=== PATIENT | male | born 1960 | race Caucasian/White ===

== ENCOUNTER 2016-05-06 11:46 | Emergency (ER) | payer MEDICAID, OTHER ==
[2016-05-06 12:49] VITALS: BP 134/94
[2016-05-06] MEDS ORDERED: Aspirin Low Dose CHEW TAB* 81 MG PO ONE (14:26)
--- NOTE | 2016-05-06 14:44 | UC ---
cassidy March Timothy, scribed for Marielle Kenney DO on 05/06/16 at 1319 . General HPI - HPI Summary HPI Summary: Jacob Rodarte is a 56 yo male presenting to [facility] with 2/10 constant left, squeezing flank pain that wraps around to his front, causing some numbness for the past 3-4 weeks, gradually getting worse. He states there are no aggravating or alleviating factors. However, pt notes that his sob is worse whenever sqeezing intensifies. Pt has a Hx of COPD and is on 3 L O2, and he feels his SOB getting worse. Pt noticed blood in his urine five weeks ago, and states that when transferring from portable to standard O2 it immediately creates urinary urgency. but denies any other Sx. Pt also has a Hx of cardiac stent 3 years ago after having blood clots. He is a light every day tobacco smoker. - History of Current Complaint Chief Complaint: UCGeneralIllness Stated Complaint: COPD SOB SQUEEZING FEELING ON SIDE Time Seen by Provider: 05/06/16 13:13 Hx Obtained From: Patient Onset/Duration: Gradual Onset, Lasting Days, Still Present Timing: Constant Onset Severity: Moderate Current Severity: Moderate Pain Intensity: 2 - /10 Pain Location at: flank Pain Radiates to: front Character: pressure, squeezing Associated Signs & Symptoms: Positive: Abdominal Pain, Back Pain, SOB - mostly at baseline though sob worsens with increase in squeezing. Negative: Confusion , Cough, Chest Pain, Dizziness, Diarrhea, Dysuria, Diaphoresis, Edema, Fever, Headache, Nausea, Palpitations, Syncope, Vomiting, Wheezing, Weakness - Allergy/Home Medications Allergies/Adverse Reactions: Allergies Allergy/AdvReac Type Severity Reaction Status Date / Time Penicillins Allergy See Comment Verified 05/06/16 12:49 Home Medications: Home Medications Aspirin [Aspirin Adult Low Strengt] 81 mg PO 05/06/16 [History] Atorvastatin* [Lipitor*] 40 mg PO 1700 05/06/16 [History Confirmed 05/06/16] Budesonide/Formote 80/4.5(NF) [Symbicort 80/4.5 (NF)] 1 puff INH BID 05/06/16 [ History Confirmed 05/06/16] Metoprolol Succinate [Toprol Xl] 25 mg PO 05/06/16 [History] Nitrostat 05/06/16 [History] Theophylline [Theophylline ER] 05/06/16 [History] predniSONE TAB* [Deltasone TAB*] 5 mg PO DAILY 05/06/16 [History Confirmed 05/06] PMH/Surg Hx/FS Hx/Imm Hx Endocrine History Of: Denies: Diabetes, Thyroid Disease Cardiovascular History Of: Reports: Cardiac Disorders - stent/blood clots Denies: Hypertension Respiratory History Of: Reports: COPD Denies: Asthma GI/ History Of: Denies: Ulcer Other History Of: Anticoagulant Therapy - Surgical History Surgical History: Yes Surgery Procedure, Year, and Place: Oral Surgery - Family History Known Family History: Positive: Other - mom- lung cancer; father -CVA Negative: Cardiac Disease, Hypertension, Diabetes - Social History Occupation: Disabled Alcohol Use: Rare Substance Use Type: None Smoking Status (MU): Light Every Day Tobacco Smoker Type: Cigarettes Amount Used/How Often: 3-10 cigs per day Length of Time of Smoking/Using Tobacco: "all my life" Household Exposure Type: Cigarettes Cessation Counseling: Patient Advised to Stop - Immunization History Most Recent Influenza Vaccination: never Most Recent Tetanus Shot: unknown Most Recent Pneumonia Vaccination: never Review of Systems Constitutional: Negative Skin: Negative Eyes: Negative ENT: Negative Respiratory: Shortness Of Breath - worse than baseline with increased squeezing Cardiovascular: Negative Gastrointestinal: Abdominal Pain - from flank pain Genitourinary: Hematuria, Urgency - with initial O2 administration, Other - left flank pain Motor: Negative Neurovascular: Negative Musculoskeletal: Negative Neurological: Negative Psychological: Negative All Other Systems Reviewed And Are Negative: Yes Physical Exam Triage Information Reviewed: Yes Appearance: Well-Appearing, No Pain Distress, Well-Nourished Vital Signs: Initial Vital Signs Temp 99.1 F 05/06/16 12:41 Pulse 103 05/06/16 12:41 Resp 24 05/06/16 12:41 BP 134/94 05/06/16 12:41 Pulse Ox 92 05/06/16 12:41 Vital Signs Reviewed: Yes Eyes: Positive: Conjunctiva Clear. Negative: Conjunctiva Inflamed, Discharge ENT: Positive: Hearing grossly normal. Negative: Muffled/hoarse voice Neck: Positive: Supple, Nontender Respiratory: Positive: Chest non-tender, Lungs clear, Normal breath sounds, No respiratory distress, No accessory muscle use Cardiovascular: Positive: RRR, No Murmur Abdomen Description: Positive: Soft. Negative: Nontender - mild LLQ tenderness to palpation, CVA Tenderness (R), CVA Tenderness (L), Distended, Guarding, McBurney's Point Tenderness Bowel Sounds: Positive: Present Musculoskeletal Exam: Normal Neurological: Positive: Alert, Muscle Tone Normal Psychological Exam: Normal Psychological: Positive: Age Appropriate Behavior Skin Exam: Normal Diagnostics - EKG Cardiac Rate: NL - NSR @ [address] changes Re-Evaluation - Re-Evaluation First Eval Re-Evaluation Time: 14:13 Change: Worse Comment: Pt pricked his finger on the needle of the urine collection cup. Needle was sterile. An incident report is being filed. Site of prick has been examined and cleaned. Course/Dx - Course Course Of Treatment: Jacob Rodarte is a 56 yo male presenting to [facility] with COPD and squeezing left flank pain wrapping to the front of his body. After review of his UA and EKG, he was recommended to present to [facility], but will leave AMA instead. UA Results: Color: pale. Character: clear. Odor: none. Bilirubin: negative. Urobilinogen: normal. Ketoens: negative. Ascorbic acid: negative. Glucose: negative. Protein: negative. Blood: negative. pH: 8. Nitrite: negative. Leukocytes: normal. Specific [place]: 1.010. while giving urine specimen, pt puched his thumb through the lid og urine cup and suffered a puncture wound on the sterile needle inside the cup. on examination of the thumb, a small puncture wound is noted at the tip of his rt thumb. wound was cleaned and dressed by nursing. - Differential Dx - Multi-Symptom Provider Diagnoses: ama, atypical cp, flank pain, dyspnea, puncture wound Discharge - Discharge Plan Condition: Stable Disposition: AGAINST MEDICAL ADVICE Referrals: Josh Fairchild MD [Primary Care Provider] - 2 Days Additional Instructions: Follow up with your primary care physician regarding your visit to urgent care. Return to urgent care or the emergency department with any new or recurring symptoms. The documentation as recorded by the cassidy mullen Timothy accurately reflects the service I personally performed and the decisions made by , Marielle Kenney DO.
== END 2016-05-06 14:50 | disposition left against medical advice (07) ==
LOC: UCEAST 11:46
DX: R07.89 Other chest pain (principal); M54.9 Dorsalgia, unspecified; R06.00 Dyspnea, unspecified; S61.031A Puncture wound without foreign body of right thumb without damage to nail, initial encounter; W46.0XXA Contact with hypodermic needle, initial encounter; Y93.9 Activity, unspecified; Y92.9 Unspecified place or not applicable; Z79.01 Long term (current) use of anticoagulants; Z79.82 Long term (current) use of aspirin; Z88.0 Allergy status to penicillin; F17.210 Nicotine dependence, cigarettes, uncomplicated
CPT/HCPCS: 81002; 87086; 93005; 99212; A9270-GY; G0463

== ENCOUNTER 2016-05-07 12:48 | Observation (INO) | payer MEDICAID, OTHER ==
[2016-05-07] MEDS ORDERED: methylPREDNISolone 125 MG* 2 ML VIAL IV ONE (13:22)
[2016-05-07] MEDS ORDERED: Albuterol/Ipratropium NEB.SOL* Albuterol 2.5 MG/Ipratropium 0.5 MG 3 ML INH ONE ×3 (13:22→15:23)
[2016-05-07 13:28] LABS: Hematocrit 47 % (42-52); Hemoglobin 15.8 g/dl (14.0-18.0); Mean Corpuscular HGB Conc 34 g/dl (31-36); Mean Corpuscular Hemoglobin 30 pg (27-31); Mean Corpuscular Volume 89 fL (80-94); Mean Platelet Volume 9 um3 (7.4-10.4); Red Blood Count 5.27 10^6/ul (4.0-5.4); Red Cell Distribution Width 14 % (10.5-15); White Blood Count 11.6 10^3/ul (3.5-10.8)
[2016-05-07 13:44] LABS: Albumin 4.1 g/dL (3.2-5.2); BUN/Creatinine Ratio 14.6 (8-20); Calcium 9.5 mg/dL (8.6-10.3); EGFR African American 124.5 (>60); EGFR Non-African American 96.8 (>60); Globulin 2.7 g/dL (2-4); Potassium 3.9 mmol/L (3.5-5.0); Total Bilirubin 0.4 mg/dL (0.2-1.0); Total Protein 6.8 g/dL (6.4-8.9)
[2016-05-07 13:47] LABS: Troponin I 0.01 ng/mL (<0.04)
--- NOTE | 2016-05-07 13:48 | ED ---
cassidy March Timothy, scribed for Danyelle Rodarte MD on 05/07/16 at 1324 . Respiratory - HPI Summary HPI Summary: Jacob Rodarte is a 56 yo male presenting to [facility] with left side back pain and SOB. He was seen in urgent care yesterday and left AMA after a UA and EKG were performed. He had increased shortness of breath over the past few hours, with lower back pain wrapping to the front and increased urinary urgency with initial O2 administration at home. He recently saw Dr. fatima for COPD. He denies all other Sx including cough. He nebulizes 1x per day, but has not used it today. He has a Hx of COPD, cardiac stent 3 years ago, and is a 3 cigarette/ day smoker currently. He does not use any other drugs. He is allergic to penicllin. - History of Current Complaint Chief Complaint: EDRespiratoryDistress Stated Complaint: DIFF BREATHING Time Seen by Provider: 05/07/16 13:13 Hx Obtained From: Patient Onset/Duration: Gradual Onset, Lasting Days, Still Present Timing: Constant Initial Severity: Moderate Current Severity: Moderate - Allergy/Home Medications Allergies/Adverse Reactions: Allergies Allergy/AdvReac Type Severity Reaction Status Date / Time Penicillins Allergy See Comment Verified 05/06/16 12:49 PMH/Surg Hx/FS Hx/Imm Hx Endocrine/Hematology History: Reports: Hx Anticoagulant Therapy - ASA Denies: Hx Diabetes, Hx Thyroid Disease Cardiovascular History: Reports: Hx Coronary Artery Disease Denies: Hx Congestive Heart Failure, Hx Hypercholesterolemia, Hx Hypertension Respiratory History: Reports: Hx Chronic Obstructive Pulmonary Disease (COPD) Denies: Hx Asthma GI History: Denies: Hx Ulcer - Surgical History Surgery Procedure, Year, and Place: Oral Surgery Infectious Disease History: No Infectious Disease History: Denies: Hx Hepatitis, Hx Human Immunodeficiency Virus (HIV), Hx of Known/ Suspected MRSA, Traveled Outside the [place] in Last 30 Days - Family History Known Family History: Positive: Other - mom- lung cancer; father -CVA Negative: Cardiac Disease, Hypertension, Diabetes - Social History Alcohol Use: Rare Substance Use Type: Reports: None Smoking Status (MU): Light Every Day Tobacco Smoker Type: Cigarettes Amount Used/How Often: 3-10 cigs per day Length of Time of Smoking/Using Tobacco: "all my life" Review of Systems Constitutional: Negative Negative: Fever, Skin Diaphoresis Eyes: Negative Negative: Photophobia, Blurred Vision, Diplopia, Drainage, Erythema ENT: Negative Negative: Epistaxis, Dental Pain, Sore Throat, Ear Ache, Nasal Discharge Cardiovascular: Negative Negative: Palpitations, Chest Pain Positive: Shortness Of Breath, Cough Gastrointestinal: Negative Negative: Abdominal Pain, Vomiting, Diarrhea, Nausea Genitourinary: Negative Positive: urgency. Negative: burning, dysuria, discharge, frequency, flank pain , hematuria, incontinence, pain Musculoskeletal: Negative Negative: Arthralgia, Myalgia, Decreased ROM, Edema Skin: Negative Negative: Rash, Bruising Neurological: Negative Negative: Headache, Weakness, Paresthesia, Numbness, Slurred Speech Psychological: Normal Negative: Anxious, Depressed All Other Systems Reviewed And Are Negative: Yes Physical Exam Triage Information Reviewed: Yes Vital Signs On Initial Exam: Initial Vitals Temp Pulse Resp BP Pulse Ox 100.2 F 128 22 145/94 93 05/07/16 12:50 05/07/16 12:50 05/07/16 12:50 05/07/16 12:50 05/07/16 12:50 Vital Signs Reviewed: Yes Appearance: Positive: Well-Appearing, No Pain Distress, Well-Nourished Skin: Positive: Warm, Skin Color Reflects Adequate Perfusion, Dry Head/Face: Positive: Normal Head/Face Inspection Eyes: Positive: Normal, EOMI, SAFIA ENT: Positive: TMs normal Neck: Positive: Supple, Nontender Respiratory/Lung Sounds: Positive: Other - decreased BS bases Few scattered wheeze, no rhonci Cardiovascular: Positive: Normal, RRR. Negative: Murmur Abdomen Description: Positive: Nontender, No Organomegaly, Soft Bowel Sounds: Positive: Present Musculoskeletal: Positive: Normal, Strength/ROM Intact Neurological: Positive: Normal, Sensory/Motor Intact, Alert, Oriented to Person Place, Time Psychiatric: Positive: Normal AVPU Assessment: Alert - Assawoman Coma Scale Best Eye Response: 4 - Spontaneous Best Motor Response: 6 - Obeys Commands Best Verbal Response: 5 - Oriented Diagnostics - Vital Signs Vital Signs Temp Pulse Resp BP Pulse Ox 05/07/16 12:50 100.2 F 128 22 145/94 93 - Laboratory Lab Results: Lab Results 05/07/16 05/07/16 05/07/16 Range/Units 13:16 13:16 13:16 WBC 11.6 H (3.5-10.8) 10^3/ul RBC 5.27 (4.0-5.4) 10^6/ul Hgb 15.8 (14.0-18.0) g/dl Hct 47 (42-52) % MCV 89 (80-94) fL MCH 30 (27-31) pg MCHC 34 (31-36) g/dl RDW 14 (10.5-15) % Plt Count 165 (150-450) 10^3/ul MPV 9 (7.4-10.4) um3 Neut % (Auto) 86.6 H (38-83) % Lymph % (Auto) 6.9 L (25-47) % Isabella % (Auto) 5.3 (1-9) % Eos % (Auto) 0.6 (0-6) % Baso % (Auto) 0.6 (0-2) % Absolute Neuts (auto) 10.1 H (1.5-7.7) 10^3/ul Absolute Lymphs (auto) 0.8 L (1.0-4.8) 10^3/ul Absolute Monos (auto) 0.6 (0-0.8) 10^3/ul Absolute Eos (auto) 0.1 (0-0.6) 10^3/ul Absolute Basos (auto) 0.1 (0-0.2) 10^3/ul Absolute Nucleated RBC 0 10^3/ul Nucleated RBC % 0 Sodium 136 (133-145) mmol/L Potassium 3.9 (3.5-5.0) mmol/L Chloride 101 (101-111) mmol/L Carbon Dioxide 32 (22-32) mmol/L Anion Gap 3 (2-11) mmol/L BUN 12 (6-24) mg/dL Creatinine 0.82 (0.67-1.17) mg/dL Est GFR ( Amer) 124.5 (>60) Est GFR (Non-Af Amer) 96.8 (>60) BUN/Creatinine Ratio 14.6 (8-20) Glucose 101 H (70-100) mg/dL Lactic Acid 1.4 (0.5-2.0) mmol/L Calcium 9.5 (8.6-10.3) mg/dL Magnesium 2.0 (1.9-2.7) mg/dL Total Bilirubin 0.40 (0.2-1.0) mg/dL AST 11 L (13-39) U/L ALT 19 (7-52) U/L Alkaline Phosphatase 93 (34-104) U/L Total Creatine Kinase 41 (10-223) U/L CK-MB (CK-2) Pending Troponin I Pending Total Protein 6.8 (6.4-8.9) g/dL Albumin 4.1 (3.2-5.2) g/dL Globulin 2.7 (2-4) g/dL Albumin/Globulin Ratio 1.5 (1-3) Result Diagrams: 05/07/16 13:16 05/07/16 13:16 Lab Statement: Any lab studies that have been ordered have been reviewed, and results considered in the medical decision making process. - EKG 1308 Cardiac Rate: Tachycardia EKG Interpretation: Sinus tachy cardia @ 113 BPM, no acute ST T wave changes. No change 05/06/16 Re-Evaluation - Re-Evaluation First Eval Re-Evaluation Time: 14:15 Change: Improved Comment: Pt states feels markedly improved. Will trial home O2 4lpm. + BS throughout. few scattered wheeze. No accessory muscle use Second Eval Re-Evaluation Time: 15:00 Change: Improved Comment: pt continues to feel well. sats 93 4lnc. reviewed labs, imaging. Pt in agreement for overnight observation. Spoke with Dr. Kelsey - accepting patient Disposition - Course Assessment/Plan: Pt presents to ED with complaint of left low back pain. Pt also with progressive SOB x 1 week. pt with copd. Has been using MDI with mild improvement. Pt without other symptoms - Differential Dx - Cardiopulmonary Differential Diagnoses - Cardiopulmonary: Acute Coronary, Exacerbation Of COPD - Diagnoses Provider Diagnoses: COPD exacerbation - Physician Notifications Discussed Care Of Patient With: Dr. Kelsey [id number] - accepting pt Time Discussed With Above Provider: 14:45 Instructed by Provider To: Admit As Observation Discharge - Discharge Plan Condition: Improved Disposition: ADMITTED TO [facility] Referrals: Josh Fairchild MD [Primary Care Provider] - The documentation as recorded by the cassidy mullen Timothy accurately reflects the service I personally performed and the decisions made by , Danyelle Rodarte MD.
--- NOTE | 2016-05-07 13:52 | RAD ---
Indication: Shortness of breath, wheezing, hypoxia. LEFT side back pain as well as shortness of breath. Oxygen dependent. Comparison: January 09, [address] Technique: Upright AP 1340 hours Report: Elevated lung volumes and both coarsening and rarefaction of the interstitial markings corresponding with advanced emphysema and mild interstitial fibrosis on prior CT. The far peripheral margin of the LEFT costophrenic angle is incompletely included in the [id number]. No focal pulmonary lesions, alveolar consolidation, pleural effusion, or pneumothorax evident. The heart, pulmonary vasculature, and mediastinal contours are unremarkable. IMPRESSION: Stigmata of advanced chronic obstructive pulmonary disease and emphysema. No acute cardiopulmonary process evident.
[2016-05-07] MEDS ORDERED: Albuterol/Ipratropium NEB.SOL* Albuterol 2.5 MG/Ipratropium 0.5 MG 3 ML ONE (15:39)
[2016-05-07] MEDS ORDERED: Acetaminophen TAB* 325 MG PO PRN (16:08)
[2016-05-07] MEDS ORDERED: Morphine INJ* 2 MG/ML 1 ML CARPUJECT IV PRN (16:08)
[2016-05-07] MEDS ORDERED: Albuterol/Ipratropium NEB.SOL* Albuterol 2.5 MG/Ipratropium 0.5 MG 3 ML INH PRN (16:08)
[2016-05-07] MEDS ORDERED: Enoxaparin(*) 40 MG/0.4 ML SYR SUBCUT SCH (17:00)
[2016-05-07] MEDS ORDERED: Azithromycin IV(*) 500 MG in NS 0.9% 250 ML* 250 ML IVPB SCH (17:00)
[2016-05-07] MEDS ORDERED: Atorvastatin* 40 MG TAB PO SCH (17:00)
[2016-05-07] MEDS ORDERED: Mouth Piece, Nicotine* 1 EACH CARTRIDGE INH PRN (18:20)
[2016-05-07] MEDS: Nicotine Inhaler* 10 MG AMP INH PRN (19:07)
[2016-05-07] MEDS: Mometasone/Formoter 100/5 MDI INH SCH (19:46)
--- NOTE | 2016-05-07 23:20 | HP ---
HISTORY AND PHYSICAL: DATE OF ADMISSION: 05/07/15 PRIMARY CARE PROVIDER: Dr. Josh Fairchild. RAILROAD AUDITOR: Dr. Shi. ATTENDING PROVIDER: Laura Kelsey MD * (DICTATED BY ABRIL DUVALL) CHIEF COMPLAINT: Dyspnea. HISTORY OF PRESENT ILLNESS: This is a 56-year-old gentleman with known severe COPD requiring 3 L of supplemental oxygen at baseline as well as known coronary disease, status post PCI who presented to the emergency department with complaints of kind of left flank discomfort and dyspnea. The patient states that he was seen with these complaints at [facility] yesterday who suggested that he proceed to the emergency department for evaluation, but instead came today. He states that his respiratory symptoms has been quite severe for several months and he was actually pleasantly surprised with his oxygen saturation at 85% when he reached to the emergency department. The patient states that he has been coughing occasionally a productive cough, but not necessarily more than usual. He denies any fevers at home and he denies any abdominal pain, nausea or vomiting. He does not feel particularly ill. Again, he states that his respiratory symptoms have been quite severe for months. He is followed chronically by Dr. Shi for COPD care. The patient had pulmonary function testing done on 04/12/16, just 2 weeks ago, which does confirm the severity of his COPD. His FEV1 was 14% of predicted with an FEV1/FVC ratio of 39% with some reversibility with bronchodilators. The patient received 2 DuoNeb and a dose of Solu-Medrol in the emergency department. Oxygenation has improved significantly and he states that he is actually feeling quite well at this time. PAST MEDICAL HISTORY: 1. Severe COPD requiring 3 L of supplemental O2 at baseline. 2. Coronary artery, disease status post PCI. PAST SURGICAL HISTORY: PCI. HOME MEDICATIONS: 1. Aspirin 81 mg p.o. daily. 2. Lipitor 40 mg p.o. daily. 3. Symbicort 2 puffs inhaled twice daily. 4. Metoprolol succinate 25 mg p.o. daily. 5. Theophylline 450 mg p.o. daily. 6. Incruse 62.5 mcg inhaled daily. 7. Prednisone 5 mg p.o. daily. SOCIAL HISTORY: The patient continues to smoke about 3 cigarettes daily. He has a 40 plus pack year smoking history. He lives alone. Has an adult son who lives in the area and he denies any regular alcohol consumption. REVIEW OF SYSTEMS: As noted above in the HPI and is otherwise negative. PHYSICAL EXAMINATION GENERAL: This is a pleasant middle-aged gentleman, in no acute distress with nasal cannula in place. VITAL SIGNS: Temperature 100.2 degrees Fahrenheit, pulse 128 beats per minute, respiratory rate 22, oxygen saturation 93% on 2 L via nasal cannula, and blood pressure 145/94 mmHg. HEENT: Head is normocephalic, atraumatic with mucous membranes pink and moist. RESPIRATORY: The patient has reduced breath sounds in all lung [place]th[place]. No significant wheezing or rhonchi appreciated. CARDIOVASCULAR: Heart has regular rate and rhythm without murmurs, rubs, or gallops. ABDOMEN: Soft and nontender to palpation. EXTREMITIES: No lower extremity edema. SKIN: Limited exam shows no concerning masses or lesions. LABORATORY DATA: CBC shows a white blood cell count of 11,600, hemoglobin 15.8 g/dL, and platelet count of 165,000. Comprehensive metabolic panel is essentially within normal limits. Sodium of 136 mmol/L, potassium 3.9, serum bicarb of 32, BUN 12, creatinine 0.82, estimated GFR of 96. Random glucose of 101 mg/dL. Troponin negative. Lactic acid normal at 1.4. Influenza screening is negative. IMAGING: Chest x-ray shows no acute disease. Chest x-ray shows normal sinus rhythm. ASSESSMENT AND PLAN: This is a 56-year-old gentleman with severe chronic obstructive pulmonary disease who presents with complaints of dyspnea and some chest discomfort. He does not have an acute infiltrate appreciated on chest x- ray. He was significantly hypoxic in the emergency department. He will be admitted for chronic obstructive pulmonary disease exacerbation. 1. Chronic obstructive pulmonary disease exacerbation. The patient is chronically followed by Dr. Shi and is on supplemental oxygen at baseline as well as lot of steroid therapy on a daily basis. He is also receiving maximal inhale therapy. We will admit him with orders for IV steroids, p.r.n. DuoNeb, and azithromycin for its anti-inflammatory effect. 2. Coronary artery disease - no evidence of acute coronary syndrome. Initial troponin negative after greater than 24 hours of symptoms and no EKG changes. We will continue aspirin and statin. 3. Code status. The patient is full code. 4. DVT prophylaxis. The patient is at moderate risk for deep venous thrombosis and will be placed on 40 mg of Lovenox. 5. Healthcare proxy is listed as the patient's son, Jim Rodarte. DISPOSITION: The patient is being admitted to inpatient status for COPD exacerbation. Estimated length of stay is greater than 2 midnights. ABRIL DUVALL CC: Dr. Josh Fairchild; Dr. Shi* [id number]/[facility] #: [id number] [facility]
[2016-05-08 05:32] LABS: Hematocrit 44 % (42-52); Hemoglobin 14.8 g/dl (14.0-18.0); Mean Corpuscular HGB Conc 33 g/dl (31-36); Mean Corpuscular Hemoglobin 30 pg (27-31); Mean Corpuscular Volume 89 fL (80-94); Mean Platelet Volume 10 um3 (7.4-10.4); Red Blood Count 4.98 10^6/ul (4.0-5.4); Red Cell Distribution Width 14 % (10.5-15); White Blood Count 15.1 10^3/ul (3.5-10.8)
[2016-05-08 05:46] LABS: BUN/Creatinine Ratio 17.8 (8-20); Calcium 9.3 mg/dL (8.6-10.3); EGFR African American 111.9 (>60); Potassium 4.1 mmol/L (3.5-5.0)
[2016-05-08] MEDS: Mometasone/Formoter 100/5 MDI INH SCH (07:34)
[2016-05-08] MEDS ORDERED: Theophylline TAB* 300 MG PO SCH (09:00)
[2016-05-08] MEDS ORDERED: methylPREDNISolone 125 MG* 2 ML VIAL IV SCH (09:00)
[2016-05-08] MEDS ORDERED: UMECLIDIN MDI INH SCH (09:00)
[2016-05-08] MEDS ORDERED: Metoprolol Succinate XL TAB* 25 MG PO SCH (09:00)
[2016-05-08] MEDS ORDERED: Aspirin EC Low Dose* 81 MG TAB.EC PO SCH (09:00)
[2016-05-08 11:25] VITALS: BP 137/73
[2016-05-08] MEDS: Nicotine Inhaler* 10 MG AMP INH PRN (12:08)
--- NOTE | 2016-05-09 08:54 | DS ---
DISCHARGE SUMMARY: DATE OF ADMISSION: 05/07/16 DATE OF DISCHARGE: 05/08/16 PRIMARY CARE PROVIDER: Dr. Fairchild LOKIE ENGINEER: Jennifer Shi MD. DISCHARGING PROVIDER: ABRIL Duvall. SUPERVISING PHYSICIAN: Macy Collins MD. * (dictated by ABRIL Duvall) PRIMARY DISCHARGE DIAGNOSIS: COPD exacerbation. SECONDARY DISCHARGE DIAGNOSES: 1. Chronic respiratory failure secondary to COPD. 2. Coronary artery disease, status post PCI, without evidence of acute coronary artery syndrome contributing to this hospital admission. DISCHARGE MEDICATIONS: 1. Ventolin inhaler two puffs inhaled 4 times daily as needed for shortness of breath. 2. DuoNebs, one neb inhaled q. 4 to 6 hours as needed for shortness of breath. 3. Aspirin 81 mg p.o. daily. 4. Lipitor 40 mg p.o. daily. 5. Azithromycin 500 mg p.o. daily x4 days. 6. Symbicort 80/4.5 two puffs inhaled twice daily. 7. Metoprolol succinate 25 mg p.o. daily. 8. Nitroglycerin 0.5 mg sublingual q. 5 minutes as needed for chest pain. 9. Theophylline 450 mg p.o. daily. 10. Incruse 62.5 mcg inhaled daily. 11. Prednisone tapering dose starting at 40 mg. MEDICATION CHANGES: Prednisone taper with instructions to take 40 mg x3 days, followed by 20 mg x3 days, followed by 10 mg x3 days, and then return to his usual dose of 5 mg daily. HOSPITAL IMAGIN. Chest x-ray shows no acute process. 2. EKG shows a sinus rhythm at a rate of 113 beats per minute, but no ischemic changes. HOSPITAL COURSE: This is a 56-year-old gentleman with chronic respiratory failure secondary to COPD, requiring 3 L of supplemental oxygen at baseline, as well as coronary artery disease with history of PCI several years ago who presented with complaints of a kind of left flank discomfort and dyspnea. The patient was seen at [facility] the day prior to admission who had recommended that he be transferred to the emergency department for further evaluation, but the patient declined do so, but when he was not feeling any better he reported to the emergency department. Initial chest x-ray shows no acute infiltrate. The patient had a noted [place] [id number]. Labs were otherwise unremarkable. EKG was unchanged. The patient was noted to be hypoxic on his usual 3 L, at approximately 85%. The patient received Solu-Medrol and two DuoNebs in the emergency department, and he was subsequently admitted for COPD exacerbation. The patient reported significant improvement in just his overnight stay. He received Solu-Medrol, continued on his home inhaled therapies as mentioned above , and given p.r.n. DuoNebs as well as azithromycin. He had very little air exchange appreciated on initial exam, but no significant wheeze and has remained unchanged. He did maintain oxygen saturations in the mid 90s or so on his usual 3 L, and was able to ambulate at 4 L and maintain oxygen saturations in the upper 80s without complaints of significant dyspnea. The patient is followed chronically by Dr. Shi and had pulmonary function testing completed just few weeks ago. This has confirmed the severity of his COPD with an FEV1 14% of predicted, and an FEV1 to FVC ratio of 38.7 with good reversibility with a beta agonist. DISPOSITION: The patient is being discharged to home. Only medication change is a steroid taper with instructions to return to his usual dose of 5 mg daily upon completion. The patient was made a follow-up appointment with his shop assistant, Dr. Shi, for later this week. The patient is instructed to resume all his usual home medications. ABRIL DUVALL CC: Dr[place] Fairchild; [place] [id number]/[facility] #: [id number] [facility]
== END 2016-05-08 12:25 | disposition home or self-care (01) ==
LOC: ED 12:48 → MED 14:51 → INTOOBSV 14:51
PROVIDERS: ADMIT Hospitalist; ATTEND Hospitalist
DX: J44.1 Chronic obstructive pulmonary disease with (acute) exacerbation (principal); J96.10 Chronic respiratory failure, unspecified whether with hypoxia or hypercapnia; I25.10 Atherosclerotic heart disease of native coronary artery without angina pectoris; R00.0 Tachycardia, unspecified; Z79.82 Long term (current) use of aspirin; Z79.899 Other long term (current) drug therapy; Z88.0 Allergy status to penicillin; F17.210 Nicotine dependence, cigarettes, uncomplicated
CPT/HCPCS: 36415; 71010; 80048; 80053; 82550; 82553; 83605; 83735; 83880; 84484; 85025; 87502; 93005; 94640; 94760; 96372; 96374; 96375; 96376; 99283; 99406; A9270-GY; G0378; J0456; J1650; J2930

== ENCOUNTER 2016-09-18 12:48 | Observation (INO) | payer OTHER ==
[2016-09-18 14:58] LABS: Hematocrit 46 % (42-52); Mean Corpuscular HGB Conc 33 g/dl (31-36); Mean Corpuscular Hemoglobin 29 pg (27-31); Mean Corpuscular Volume 88 fL (80-94); Mean Platelet Volume 10 um3 (7.4-10.4); Red Cell Distribution Width 14 % (10.5-15); White Blood Count 11.4 10^3/ul (3.5-10.8)
[2016-09-18 15:08] LABS: Troponin I 0.01 ng/mL (<0.04)
[2016-09-18 15:09] LABS: BUN/Creatinine Ratio 14.3 (8-20); Calcium 9.1 mg/dL (8.6-10.3); EGFR African American 110.4 (>60); EGFR Non-African American 85.9 (>60); Globulin 2.5 g/dL (2-4); Potassium 4.2 mmol/L (3.5-5.0); Total Bilirubin 0.6 mg/dL (0.2-1.0); Total Protein 6.5 g/dL (6.4-8.9)
[2016-09-18] MEDS ORDERED: methylPREDNISolone 125 MG* 2 ML VIAL IV ONE (16:40)
--- NOTE | 2016-09-18 16:44 | RAD ---
INDICATION: Dull constant pain LEFT chest. Difficulty breathing. Chronic obstructive pulmonary disease/asthma. Cardiac disease. COMPARISON: May 07, 2016 chest radiograph and January 09, 2016 CT. TECHNIQUE: Dual energy PA and routine lateral views of the chest were obtained. REPORT: Elevated lung volumes and both diffuse mild prominence of the interstitial markings and patchy rarefaction of the mid to upper lung zone interstitial markings. No focal pulmonary lesion, alveolar consolidation, pleural effusion, pneumothorax. The heart, pulmonary vasculature, and mediastinal contours are unremarkable. No rib fracture evident. No focal osseous lesions evident. IMPRESSION: Stigmata of obstructive lung disease. No acute pulmonary or cardiac process evident.
[2016-09-18] MEDS ORDERED: Albuterol/Ipratropium NEB.SOL* Albuterol 2.5 MG/Ipratropium 0.5 MG 3 ML INH SCH (17:00)
[2016-09-18] MEDS: Albuterol/Ipratropium NEB.SOL* Albuterol 2.5 MG/Ipratropium 0.5 MG 3 ML INH SCH (17:11)
[2016-09-18 17:56] LABS: PCO2 Arterial 57 mmHg (35-45)
--- NOTE | 2016-09-18 18:29 | ED ---
Neel March Aidan, scribed for Patrice Alejandra MD on 09/18/16 at 1821 . Shortness of Breath - HPI Summary HPI Summary: 56 y/o male presents to the ED with a complaint of acute, constant, moderate-to- severe, worsening SOB that has persisted for the past several weeks. Previously , he felt short of breath after walking from room to room, however, his SOB is now severe enough that he feels moderately short of breath from activity as light as getting out of bed. Hx of cardiac stent, blood clot, and COPD for which he is typically prescribed medication. He noticed bilateral lower extremity edemas that have increased in the past 2 days. They reduce in size when he lies down flat. Though he denies leg pain, he mentions cramping in his feet when he sits down. Associated symptoms include left-sided back pain that radiates to the front and nausea. Pt denies vomiting, dysuria, or urinary changes. He does use O2 at home at baseline. - History of Current Complaint Chief Complaint: EDShortnessOfBreath Time Seen by Provider: 09/18/16 15:34 Hx Obtained From: Patient Onset/Duration: Gradual Onset, Lasting Weeks, Still Present Timing: Constant Current Severity: Moderate Dyspnea At: Rest - Hx of chronic SOB at rest but worse on exertion Aggrevating Factors: Movement Alleviating Factors: Oxygen - Pt takes O2 at baseline at home, which alleviates some of his SOB Associated Signs & Symptoms: Edema - bilateral lower extremity, with associated foot soreness when he sits down, left-sided back pain that radiates to the front , nausea - Allergy/Home Medications Allergies/Adverse Reactions: Allergies Allergy/AdvReac Type Severity Reaction Status Date / Time Penicillins Allergy See Comment Verified 05/06/16 12:49 Home Medications: Home Medications Atenolol TAB* [Tenormin TAB* 25 MG] 25 mg PO DAILY 09/18/16 [History Confirmed 09/18/16] Atorvastatin* [Lipitor*] 40 mg PO DAILY 09/18/16 [History Confirmed 09/18/16] Diltiazem HCl Coated Beads [Cartia Xt] 120 mg PO DAILY 09/18/16 [History Confirmed 09/18/16] Theophylline [Theophylline ER] 400 mg PO DAILY 09/18/16 [History Confirmed 09/18] predniSONE TAB* [Deltasone TAB*] 10 mg PO QAM 09/18/16 [History Confirmed ] PMH/Surg Hx/FS Hx/Imm Hx Endocrine/Hematology History: Reports: Hx Anticoagulant Therapy - ASA Denies: Hx Diabetes, Hx Thyroid Disease Cardiovascular History: Reports: Hx Coronary Artery Disease Denies: Hx Congestive Heart Failure, Hx Hypercholesterolemia, Hx Hypertension Respiratory History: Reports: Hx Asthma, Hx Chronic Obstructive Pulmonary Disease (COPD) GI History: Denies: Hx Ulcer - Surgical History Surgery Procedure, Year, and Place: Oral Surgery Infectious Disease History: No Infectious Disease History: Denies: Hx Hepatitis, Hx Human Immunodeficiency Virus (HIV), Hx of Known/ Suspected MRSA, Traveled Outside the [place] in Last 30 Days - Family History Known Family History: Positive: Other - mom- lung cancer; father -CVA Negative: Cardiac Disease, Hypertension, Diabetes - Social History Occupation: Disabled Lives: With Family Alcohol Use: Rare Substance Use Type: Reports: None Smoking Status (MU): Light Every Day Tobacco Smoker Type: Cigarettes Amount Used/How Often: 3-10 cigs per day Length of Time of Smoking/Using Tobacco: "all my life" Review of Systems Constitutional: Negative Eyes: Negative Cardiovascular: Negative Positive: Shortness Of Breath. Negative: Cough Positive: Nausea. Negative: Abdominal Pain, Vomiting, Diarrhea Genitourinary: Negative Positive: Arthralgia - left-sided back pain that radiates to the front, Edema - bilateral lower extremity, with associated foot soreness when he sits down Skin: Negative Neurological: Negative Psychological: Normal All Other Systems Reviewed And Are Negative: Yes Physical Exam - Summary Physical Exam Summary: VITAL SIGNS: Reviewed. GENERAL: Patient is a well-developed and nourished MALE who is lying comfortable in the stretcher. Patient is not in any acute respiratory distress. HEAD AND FACE: No signs of trauma. No ecchymosis, hematomas or skull depressions. No sinus tenderness. EYES: PERRLA, EOMI x 2, No injected conjunctiva, no nystagmus. EARS: Hearing grossly intact. Ear canals and tympanic membranes are within normal limits. MOUTH: Oropharynx within normal limits. NECK: Supple, trachea is midline, no adenopathy, no JVD, no carotid bruit, no c- spine tenderness, neck with full ROM. CHEST: Symmetric, no tenderness at palpation LUNGS: Decreased breath sounds, No crackles. Positive diffuse wheezes bilaterally. CVS: Regular rate and rhythm, S1 and S2 present, no murmurs or gallops appreciated. ABDOMEN: Soft, non-tender. Positive distention. No rebound no guarding, and no masses palpated. Bowel sounds are normal. EXTREMITIES: FROM in all major joints, no cyanosis or clubbing. Positive pitting edema at level of ankles bilaterally, radial pulses 2+ bilaterally NEURO: Alert and oriented x 3. No acute neurological deficits. Speech is normal and follows commands. SKIN: Dry and warm Triage Information Reviewed: Yes Vital Signs On Initial Exam: Initial Vitals Temp Pulse Resp BP Pulse Ox 97.9 F 116 22 132/90 92 09/18/16 13:00 09/18/16 13:00 09/18/16 13:00 09/18/16 13:00 09/18/16 13:00 Vital Signs Reviewed: Yes - Kush Coma Scale Coma Scale Total: 15 Diagnostics - Vital Signs Vital Signs Temp Pulse Resp BP Pulse Ox 09/18/16 18:00 112 17 144/73 96 09/18/16 17:30 103 15 131/84 99 09/18/16 17:17 107 13 99 09/18/16 17:00 97 13 135/95 97 09/18/16 16:31 101 15 129/83 98 09/18/16 16:26 97.5 F 101 22 137/97 98 09/18/16 16:00 97 17 137/97 98 09/18/16 15:30 98 14 130/79 98 09/18/16 15:29 98.2 F 96 23 130/79 98 09/18/16 15:22 104 123/78 89 09/18/16 14:46 98.0 F 99 16 125/86 98 09/18/16 13:54 98.3 F 103 16 131/86 95 09/18/16 13:00 97.9 F 116 22 132/90 92 - Laboratory Lab Results: Lab Results 09/18/16 09/18/16 09/18/16 Range/Units 14:10 14:10 14:10 WBC 11.4 H (3.5-10.8) 10^3/ul RBC 5.20 (4.0-5.4) 10^6/ul Hgb 15.0 (14.0-18.0) g/dl Hct 46 (42-52) % MCV 88 (80-94) fL MCH 29 (27-31) pg MCHC 33 (31-36) g/dl RDW 14 (10.5-15) % Plt Count 178 (150-450) 10^3/ul MPV 10 (7.4-10.4) um3 Neut % (Auto) 78.8 (38-83) % Lymph % (Auto) 11.5 L (25-47) % Gu[place]upe % (Auto) 7.6 (1-9) % Eos % (Auto) 1.3 (0-6) % Baso % (Auto) 0.8 (0-2) % Absolute Neuts (auto) 9.0 H (1.5-7.7) 10^3/ul Absolute Lymphs (auto) 1.3 (1.0-4.8) 10^3/ul Absolute Monos (auto) 0.9 H (0-0.8) 10^3/ul Absolute Eos (auto) 0.1 (0-0.6) 10^3/ul Absolute Basos (auto) 0.1 (0-0.2) 10^3/ul Absolute Nucleated RBC 0.02 10^3/ul Nucleated RBC % 0.2 INR (Anticoag Therapy) 1.03 (0.89-1.11) APTT 28.9 (26.0-36.3) seconds Patient Temperature ABG pH (7.35-7.45) ABG pCO2 (35-45) mmHg ABG pO2 (80-100) mmHg ABG HCO3 (19-31) mmol/L ABG O2 Saturation (95-98) % ABG Base Excess (-2.0-2.0) Respiration Rate O2 Delivery Device Ventilator Type Vent Mode FiO2 Inspiratory Time PEEP Pressure Support Pressure Control EPAP IPAP BiPAP Sodium 146 H (133-145) mmol/L Potassium 4.2 (3.5-5.0) mmol/L Chloride 108 (101-111) mmol/L Carbon Dioxide 29 (22-32) mmol/L Anion Gap 9 (2-11) mmol/L BUN 13 (6-24) mg/dL Creatinine 0.91 (0.67-1.17) mg/dL Est GFR ( Amer) 110.4 (>60) Est GFR (Non-Af Amer) 85.9 (>60) BUN/Creatinine Ratio 14.3 (8-20) Glucose 102 H (70-100) mg/dL Calcium 9.1 (8.6-10.3) mg/dL Total Bilirubin 0.60 (0.2-1.0) mg/dL AST 15 (13-39) U/L ALT 16 (7-52) U/L Alkaline Phosphatase 115 H (34-104) U/L Troponin I 0.01 (<0.04) ng/mL Total Protein 6.5 (6.4-8.9) g/dL Albumin 4.0 (3.2-5.2) g/dL Globulin 2.5 (2-4) g/dL Albumin/Globulin Ratio 1.6 (1-3) / Range/Units 17:53 WBC (3.5-10.8) 10^3/ul RBC (4.0-5.4) 10^6/ul Hgb (14.0-18.0) g/dl Hct (42-52) % MCV (80-94) fL MCH (27-31) pg MCHC (31-36) g/dl RDW (10.5-15) % Plt Count (150-450) 10^3/ul MPV (7.4-10.4) um3 Neut % (Auto) (38-83) % Lymph % (Auto) (25-47) % [place]upe % (Auto) (1-9) % Eos % (Auto) (0-6) % Baso % (Auto) (0-2) % Absolute Neuts (auto) (1.5-7.7) 10^3/ul Absolute Lymphs (auto) (1.0-4.8) 10^3/ul Absolute Monos (auto) (0-0.8) 10^3/ul Absolute Eos (auto) (0-0.6) 10^3/ul Absolute Basos (auto) (0-0.2) 10^3/ul Absolute Nucleated RBC 10^3/ul Nucleated RBC % INR (Anticoag Therapy) (0.89-1.11) APTT (26.0-36.3) seconds Patient Temperature Not Reportable ABG pH 7.33 L (7.35-7.45) ABG pCO2 57 H (35-45) mmHg ABG pO2 109 H (80-100) mmHg ABG HCO3 26.9 (19-31) mmol/L ABG O2 Saturation 99.0 H (95-98) % ABG Base Excess 2.6 H (-2.0-2.0) Respiration Rate Not Reportable O2 Delivery Device nasal cannula Ventilator Type Not Reportable Vent Mode Not Reportable FiO2 Not Reportable Inspiratory Time Not Reportable PEEP Not Reportable Pressure Support Not Reportable Pressure Control Not Reportable EPAP Not Reportable IPAP Not Reportable BiPAP Not Reportable Sodium (133-145) mmol/L Potassium (3.5-5.0) mmol/L Chloride (101-111) mmol/L Carbon Dioxide (22-32) mmol/L Anion Gap (2-11) mmol/L BUN (6-24) mg/dL Creatinine (0.67-1.17) mg/dL Est GFR ( Amer) (>60) Est GFR (Non-Af Amer) (>60) BUN/Creatinine Ratio (8-20) Glucose (70-100) mg/dL Calcium (8.6-10.3) mg/dL Total Bilirubin (0.2-1.0) mg/dL AST (13-39) U/L ALT (7-52) U/L Alkaline Phosphatase (34-104) U/L Troponin I (<0.04) ng/mL Total Protein (6.4-8.9) g/dL Albumin (3.2-5.2) g/dL Globulin (2-4) g/dL Albumin/Globulin Ratio (1-3) Result Diagrams: 09/18/16 14:10 09/18/16 14:10 Lab Statement: Any lab studies that have been ordered have been reviewed, and results considered in the medical decision making process. Course/Dx - Course Assessment/Plan: . 56 y/o male presents to the ED with a complaint of acute, constant, [id number], worsening SOB that has persisted for the past several weeks. Previously, he felt short of breath after walking from room to room, however, his SOB is now severe enough that he feels moderately short of breath from activity as light as getting out of bed. Hx of cardiac stent, blood clot, and COPD for which he is typically prescribed medication. He noticed bilateral lower extremity edemas that have increased in the past 2 days. They reduce in size when he lies down flat. Though he denies leg pain, he mentions cramping in his feet when he sits down. Associated symptoms include left-sided back pain that radiates to the front and nausea. Pt denies vomiting, dysuria, or urinary changes. He does use O2 at home at baseline. Tests indicated WBCs of 11.4, no bands. Sodium of 146. ABG shows pH of 7.33. PCO2 of 57 and PO2 of 109. Chest X-ray indicated no acute pathology. He was given multiple duonebs and IV solumedrol. His symptoms have improved, however, he is still with decreased breath sounds, therefore, I discussed his care with Dr Ray who accepted admission. Patient is hemodynamically stable and A&Ox3. - Diagnoses Differential Diagnosis/HQI/PQRI: Positive: Asthma, Bronchitis, CHF, COPD Exacerbation Provider Diagnoses: COPD exacerbation Discharge - Discharge Plan Condition: Stable Disposition: ADMITTED TO [facility] The documentation as recorded by the Neel mullen Aidan accurately reflects the service I personally performed and the decisions made by me, Patrice Alejandra MD.
[2016-09-18] MEDS ORDERED: Albuterol/Ipratropium NEB.SOL* Albuterol 2.5 MG/Ipratropium 0.5 MG 3 ML INH PRN (19:14)
[2016-09-18] MEDS ORDERED: Acetaminophen TAB* 325 MG PO PRN (19:14)
[2016-09-18] MEDS ORDERED: Furosemide TAB* 20 MG PO ONE (19:24)
[2016-09-18] MEDS ORDERED: Furosemide TAB* 40 MG ONE (19:53)
[2016-09-18] MEDS ORDERED: Azithromycin IV(*) 500 MG in NS 0.9% 250 ML* 250 ML IVPB SCH (20:00)
[2016-09-18] MEDS ORDERED: Enoxaparin(*) 40 MG/0.4 ML SYR SUBCUT SCH (20:00)
[2016-09-18] MEDS: Mometasone/Formoter 100/5 MDI INH SCH (20:42)
--- NOTE | 2016-09-18 22:14 | HP ---
CC: Dr. Corona; Dr. Shi * ADMISSION HISTORY AND PHYSICAL: DATE OF ADMISSION: 09/18/16 PRIMARY CARE PROVIDER: Not listed. C++ PROFESSOR: Jennifer Shi MD PRIMARY SEO MANAGER: Paula Corona MD ADMITTING PROVIDER: ABRIL Duvall SUPERVISING PHYSICIAN: Josh Ray MD * (DICTATED BY ABRIL DUVALL) CHIEF COMPLAINT: Shortness of breath. HISTORY OF PRESENT ILLNESS: This is a 56-year-old gentleman with severe COPD who requires 3 L of supplemental O2 at baseline who presents to the emergency department with complaints of increasing shortness of breath over the last week or so. He states that he has had a mild cough that has been mostly nonproductive in association with increased dyspnea. He has also noted some lower extremity edema, mostly puffiness in his feet to the point that he wore slippers into the emergency department for increased comfort. He originally thought that perhaps the edema that he has been experiencing is something to do with his diltiazem prescription. He was recently seen by his cigar packing examiner, Dr. Corona, who decreased his diltiazem from 180 mg to 120 mg daily and has noted no significant difference. He reports that he is mildly nauseated in the mornings, but no associated vomiting. No constipation or diarrhea. No complaints of abdominal pain. No fevers or night sweats. No rashes. No other recent acute illness. The patient was last seen in April with a similar presentation and treated for a COPD exacerbation. He states that he has been compliant with his medications at home. As noted above, his diltiazem dose is changed. Only other significant medication change in last several months has been his prednisone decreasing from 10 mg to 5 mg, but this was completed a couple of months ago and does not seem to be acutely contributing to his symptoms. He has also successfully quit smoking since his last hospitalization. PAST MEDICAL HISTORY: 1. Chronic respiratory failure secondary to COPD requiring 3 L of supplemental oxygen via nasal cannula. 2. Coronary artery disease, status post PCI. PAST SURGICAL HISTORY: PCI. HOME MEDICATIONS: 1. Albuterol inhaler 1 to 2 puffs inhaled 4 times daily as needed for shortness of breath. 2. Aspirin 81 mg p.o. daily. 3. Atenolol 25 mg p.o. daily. 4. Lipitor 40 mg p.o. daily. 5. Symbicort 2 puffs inhaled twice daily. 6. Diltiazem 120 mg p.o. daily. 7. Nitroglycerin 0.4 mg sublingual q.5 minutes as needed for chest pain. 8. Theophylline 400 mg p.o. daily. 9. Incruse 1 puff inhaled daily. 10. Prednisone 5 mg p.o. daily. SOCIAL HISTORY: The patient has a 40-pack year smoking history, recently quit smoking completely. Denies any regular alcohol consumption. The patient lives alone. REVIEW OF SYSTEMS: As listed above in HPI. All other systems reviewed and considered negative. PHYSICAL EXAMINATION GENERAL: This is a very pleasant 56-year-old gentleman, who appears mildly dyspneic, but can complete full sentences and is in no acute distress. VITAL SIGNS: Initial vitals show temperature 97.9 degrees Fahrenheit, pulse 116 beats per minute, respiratory rate 22, oxygen saturation 92% on 3 L, and blood pressure 132/90 mmHg. HEENT: Head is normocephalic, atraumatic. Mucous membranes are pink and moist. RESPIRATORY: There are reduced breath sounds appreciated in most lung hawthorne and occasional faint wheeze. No significant rhonchi or crackles noted. CARDIOVASCULAR: Heart has a regular rate and rhythm without murmurs, rubs, or gallops. ABDOMEN: Soft and nontender to palpation. EXTREMITIES: There is trace to 1+ edema at his feet and ankles bilaterally. SKIN: The patient has what appears to be a fungal rash surrounding plantar surface of his feet. Otherwise, unremarkable. PSYCH: The patient is alert and appropriately oriented. DIAGNOSTIC STUDIES/LAB DATA: Laboratory evaluation: CBC shows a white blood cell count of 11,400; hemoglobin of 15 g/dL; and a platelet count of 178,000. ABG demonstrates a pH of 7.33 with a pCO2 of 57, pO2 of 109, and serum bicarb of 26.9. Comprehensive metabolic panel shows sodium of 146, potassium of 4.2, serum bicarb of 29, BUN of 13, creatinine 0.91, and estimated GFR of 85. Total bilirubin and transaminases within normal limits. Troponin negative. Imaging: Chest x-ray shows changes consistent with COPD, but nothing acute. Review of echocardiogram completed in July of this year shows right ventricular hypertrophy with an intact left ventricular ejection fraction and no right ventricular failure appreciated at that time. ASSESSMENT AND PLAN: This is a 56-year-old gentleman with severe chronic obstructive pulmonary disease as well as coronary artery disease presenting with complaints of shortness of breath and lower extremity edema. 1. Chronic obstructive pulmonary disease exacerbation - we will treat the patient for chronic obstructive pulmonary disease exacerbation with steroids, p.r.n. DuoNebs, azithromycin, and continue as typical home inhaled medications including Incruse and Symbicort. He has a mild respiratory acidosis appreciated on ABG. He is oxygenating well on his baseline oxygen requirements at this time. The patient does not require additional intervention. 2. Presumed diastolic heart failure exacerbation - based on last echocardiogram , there is a mild right ventricular hypertrophy likely resulting in some diastolic dysfunction, which maybe responsible for some of the lower extremity edema. Unsure of how much of this is contributing to his dyspnea, but we will likely diurese with oral Lasix. 3. Chronic respiratory failure secondary to chronic obstructive pulmonary disease, requiring 3 L of supplemental oxygen at baseline. 4. Coronary artery disease without evidence of acute coronary syndrome: We will plan to continue his daily aspirin, statin, and beta-stephania therapy. 5. Code statusa: The patient is full code. 6. DVT prophylaxis: The patient will be started on daily Lovenox therapy. 7. Health care proxy: The patient's son. DISPOSITION: The patient is being admitted under observation status with anticipated length of stay to be 1 midnight with likely discharge tomorrow. ABRIL DUVALL [id number]/[facility] #: [id number] JOSH
[2016-09-19 05:53] LABS: Hematocrit 43 % (42-52); Hemoglobin 14.1 g/dl (14.0-18.0); Mean Corpuscular HGB Conc 33 g/dl (31-36); Mean Corpuscular Hemoglobin 29 pg (27-31); Mean Corpuscular Volume 88 fL (80-94); Mean Platelet Volume 9 um3 (7.4-10.4); Red Blood Count 4.81 10^6/ul (4.0-5.4); Red Cell Distribution Width 13 % (10.5-15); White Blood Count 10.2 10^3/ul (3.5-10.8)
[2016-09-19 06:02] LABS: Anion Gap 3 mmol/L (2-11); BUN/Creatinine Ratio 18.1 (8-20); Blood Urea Nitrogen 17 mg/dL (6-24); CO2 Carbon Dioxide 30 mmol/L (22-32); Chloride 100 mmol/L (101-111); EGFR African American 106.4 (>60); EGFR Non-African American 82.7 (>60); Glucose 145 mg/dL (70-100); Potassium 4.7 mmol/L (3.5-5.0); Sodium 133 mmol/L (133-145)
[2016-09-19 08:27] LABS: Theophylline < 2.7 mcg/mL (10-20.0)
[2016-09-19] MEDS: Mometasone/Formoter 100/5 MDI INH SCH (08:56)
[2016-09-19] MEDS ORDERED: THEOPHYLLINE 400 MG PO SCH (09:00)
[2016-09-19] MEDS ORDERED: Diltiazem CD CAP* 120 MG PO SCH (09:00)
[2016-09-19] MEDS ORDERED: Aspirin EC Low Dose* 81 MG TAB.EC PO SCH (09:00)
[2016-09-19] MEDS ORDERED: Atorvastatin* 40 MG TAB PO SCH (09:00)
[2016-09-19] MEDS ORDERED: UMECLIDIN MDI INH SCH (09:00)
[2016-09-19] MEDS ORDERED: Atenolol TAB* 25 MG PO SCH (09:00)
[2016-09-19] MEDS ORDERED: predniSONE TAB* 20 MG PO SCH (09:00)
[2016-09-19] MEDS ORDERED: Furosemide TAB* 20 MG PO SCH (09:00)
[2016-09-19 16:23] VITALS: BP 127/87
--- NOTE | 2016-09-19 19:17 | ECHO ---
Patient: SCOTTY ENRIQUEZ [facility] Rec#: [id number] : 1960 Date: 09/19/2016 Age: 56y Height: 177.8 cm / 70.0 in Weight: 85.28 kg / 188.0 lbs Sex: M BSA: 2.03 Room#: [facility] Admit Date#: 09/18/2016 Type: Inpatient Referring: Mahi Barboza MD Reading: Paula Corona MD Family Practice Physician: Sindy Eddy RDCS CC: ERVIN DUMONT Transthoracic Echocardiogram Indication: Dyspnea BP: 130/82 HR: 67 Rhythm: NSR with PACs Indications Shortness of Breath Findings History: Severe COPD, CAD, PCI, smoker. This is a LIMITED study to evaluate RV function, and assess for constriction. Technical Comments: The study quality is fair. The study is technically limited due to poor acoustic windows. The study is technically limited due to the patient's history of COPD. Completed at 1610. Left Ventricle: The left ventricular chamber size is normal. Global left ventricular wall motion and contractility are within normal limits. Left ventricular systolic function is at the lower limits of normal. The estimated ejection fraction is 50-55%. There is no consistent Doppler evidence of clinically significant diastolic dysfunction. Left Atrium: The left atrial chamber size is normal. Right Ventricle: The right ventricle is mildly dilated. The right ventricular global systolic function is mildly to moderately reduced. Right Atrium: The right atrial cavity size is normal. Mitral Valve: The mitral valve leaflets are mildly thickened. There is no evidence of mitral stenosis. Tricuspid Valve: The tricuspid valve leaflets are normal. There is trace tricuspid regurgitation. There is evidence that pulmonary hypertension may be underestimated. Pericardium: The pericardium is thickened and calcified.No consistant evidence of contrictive physiology: respiratory variation of MV=35%, of LVOT=4% of TV = 24%. Pulmonary Artery: The main pulmonary artery is not well visualized. Venous: The inferior vena cava is dilated. There is a greater than 50% respiratory change in the inferior vena cava dimension. Conclusions Limited study to follow up on right ventricle and pericardium. The study is technically limited due to the patient's history of COPD. Global left ventricular wall motion and contractility are within normal limits. The estimated ejection fraction is 50-55%. The right ventricle is mildly dilated with wall thickness at the upper limits of normal and systolic function is mildly to moderately reduced. The pericardium is thickened and echo bright, but no consistant evidence of contrictive physiology: respiratory variation of MV=35%, of LVOT=4% of TV = 24%. PA pressure measured normal but likely underestimated. Compared with prior echo of 07/08/16, LV function is stable, RV hypokinesis previously estimated as mild. Measurements Name Value Normal Range RVAW (2D) 0.5 cm (0.2 - 0.5) Name Value Normal Range MV E-wave Vmax 0.96 m/sec - MV deceleration time 210.4 msec - MV A-wave Vmax 0.46 m/sec - MV E:A ratio 2.1 ratio - LV septal e' Vmax 0.1 m/sec - LV lateral e' Vmax 0.11 m/sec - LV E:e' septal ratio 9.6 ratio - LV E:e' lateral ratio 8.72 ratio - Name Value Normal Range AV Vmax 1.07 m/sec - AV VTI 19.02 cm - AV peak gradient 4.6 mmHg - AV mean gradient 2.68 mmHg - LVOT Vmax 1.06 m/sec - LVOT VTI 23.11 cm - LVOT peak gradient 4.5 mmHg - LVOT mean gradient 2.15 mmHg - Name Value Normal Range MV Vmax 0.94 m/sec - MV VTI 28.05 cm - MV peak gradient 3.58 mmHg - MV mean gradient 1.1 mmHg - MV PHT 59.5 msec - MVA (PHT) 3.69 cm2 - Name Value Normal Range TR Vmax 1.5 m/sec - TR peak gradient 9 mmHg - RAP 8 mmHg - RVSP 17 mmHg - IVC diameter 2.3 cm -
--- NOTE | 2016-09-20 02:11 | DS ---
CC: Dr. Corona; Dr. Shi; Dr. Fairchild * DISCHARGE SUMMARY: DATE OF ADMISSION: 09/18/16 DATE OF DISCHARGE: 09/19/16 DISCHARGE DIAGNOSES: 1. Shortness of breath with chronic obstructive pulmonary disease exacerbation. 2. Leg edema due to mild right-sided heart failure with an unknown ejection fraction, echocardiogram pending. SECONDARY DIAGNOSES: 1. Chronic respiratory failure secondary to chronic obstructive pulmonary disease, requiring oxygen at 2 to 3 L. 2. History of coronary artery disease, status post stenting in the past. MEDICATIONS ON DISCHARGE: Include: 1. Albuterol inhaler on a p.r.n. basis. 2. Aspirin 81 mg daily. 3. Atenolol 25 mg daily. 4. Lipitor 40 mg daily. 5. Azithromycin 250 mg daily for 4 days total. 6. Symbicort 80/4.5 two puffs twice a day. 7. Diltiazem XT 120 mg daily. 8. Lasix 20 mg daily. 9. Nitroglycerin on a p.r.n. basis. 10. Theophylline ER 400 mg daily. 11. Incruse Ellipta one puff inhalation daily. 12. Prednisone 50 mg tablet for a total of 5 days, discontinue after 5 days and then restart prednisone at 5 mg daily continuously. At discharge, the patient is recommended to follow up with Dr. Corona in approximately 1 to 2 weeks. The patient is recommended to follow up with Dr. Shi within a week. The patient recommended to have a basic metabolic panel drawn due to being newly on Lasix and for the reports to be sent to Dr. Shi, Dr. Fairchild and Dr. Corona. HOSPITALIZATION COURSE: Jacob Rodarte is a 56-year-old male who just recently stopped smoking approximately 2 to 3 weeks ago and has severe oxygen- dependent COPD and pulmonary hypertension. He presents with COPD exacerbation. He also has bilateral leg edema, most likely due to mild right-sided heart failure for which he was started on a diuretic at this time. The patient responded very well to IV steroids and azithromycin as he is going to be discharged home 24 hours after admission. He continues to be at 3 L of oxygen via nasal cannula. The patient has history of possibility of abnormality of endopericardium and possible constriction. Repeat echocardiogram is pending at the time of dictation. The patient had it done, but the report is still delayed. The patient is to follow up with her primary care physician as well as Dr. Shi and Dr. Corona in regards to that. PHYSICAL EXAMINATION AT DISCHARGE: Blood pressure of 127/87, heart rate of 83 and regular, respiratory rate 20, oxygen saturation 92% on 3 L of oxygen via nasal cannula, temperature 97.6. General: This is a very pleasant 56-year-old male who is in no acute distress. Alert, awake and oriented x3. HEENT: Head atraumatic and normocephalic. Eyes: Pupils equal and reactive to light and accommodation. Oropharynx clear. Mucosa moist. Neck: Supple. No JVD, no bruit bilaterally. Cardiovascular: Regular rate and rhythm. No murmur. Respiratory: Distant breath sounds bilaterally with mild bibasilar wheezes. Abdomen: Soft, nontender. Positive bowel sounds present in all 4 quadrants. Extremities: There is trace bilateral pitting pedal edema. Pulses +2 bilaterally. No clubbing or cyanosis. Neuro evaluation: Speech clear. Cranial nerves II through XII grossly intact. Motor strength is 5/5 bilaterally. Please note this is a short summary of the patient's hospital stay. Please refer to further medical records for details. [id number]/[facility] #: [id number] MTDD
== END 2016-09-19 17:15 | disposition home or self-care (01) ==
LOC: ED 12:48 → MED 19:14
PROVIDERS: ADMIT Internal Medicine; ATTEND Internal Medicine
DX: J44.1 Chronic obstructive pulmonary disease with (acute) exacerbation (principal); I50.9 Heart failure, unspecified; I25.10 Atherosclerotic heart disease of native coronary artery without angina pectoris; Z95.5 Presence of coronary angioplasty implant and graft; Z79.82 Long term (current) use of aspirin; Z79.899 Other long term (current) drug therapy; Z88.0 Allergy status to penicillin; F17.210 Nicotine dependence, cigarettes, uncomplicated; R00.0 Tachycardia, unspecified
CPT/HCPCS: 36415; 36600; 71020; 80048; 80053; 80198; 82803; 83880; 84484; 85025; 85610; 85730; 93005; 93308; 94640; 94760; 96372; 96374; 99285; A9270-GY; G0378; J0456; J1650; J2930; J7512

== ENCOUNTER 2016-11-29 14:13 | Emergency (ER) | payer OTHER ==
[2016-11-29 14:42] VITALS: BP 113/74
--- NOTE | 2016-12-07 13:33 | UC ---
Marguerite March Edward, scribed for Marielle Kenney DO on 11/29/16 at 1545 . Dental HPI - HPI Summary HPI Summary: 56 y/o male presents to [facility] c/o dental pain and swelling in the upper left teeth starting a day and a half ago. The pain is mild rated 1/10 at triage. The pain is aggravated with touch. Denies other symptoms other than chronic SOB. PMHx COPD. SHx stent. FHx CVA, lung CA. Nasal cannula. - History of Current Complaint Chief Complaint: UCDentalProblem Stated Complaint: DENTAL PAIN Time Seen by Provider: 11/29/16 15:40 Hx Obtained From: Patient Onset/Duration: Lasting Days, Still Present Severity: Mild Pain Intensity: 1 Pain Scale Used: 0-10 Numeric - Allergies/Home Medications Allergies/Adverse Reactions: Allergies Allergy/AdvReac Type Severity Reaction Status Date / Time Penicillins Allergy See Comment Verified 11/29/16 14:39 PMH/Surg Hx/FS Hx/Imm Hx Previously Healthy: No Cardiovascular History: Cardiac Disease - CAD, Deep Vein Thrombosis Respiratory History: COPD Other History Of: Anticoagulant Therapy - Aspirin - Surgical History Surgical History: Yes Surgery Procedure, Year, and Place: Stent placement in heart, oral surgery - Family History Known Family History: Positive: Other - mom- lung cancer; father -CVA Negative: Cardiac Disease, Hypertension, Diabetes - Social History Occupation: Disabled Alcohol Use: Rare Substance Use Type: None Smoking Status (MU): Former Smoker Type: Cigarettes Amount Used/How Often: 3-10 cigs per day Length of Time of Smoking/Using Tobacco: "all my life" Household Exposure Type: Cigarettes - Immunization History Most Recent Influenza Vaccination: 2016 Most Recent Tetanus Shot: unknown Most Recent Pneumonia Vaccination: never Review of Systems Constitutional: Negative Skin: Negative Eyes: Negative ENT: Dental Pain - and swelling @ upper left teeth Respiratory: Shortness Of Breath - Chronic Cardiovascular: Negative Gastrointestinal: Negative Genitourinary: Negative Motor: Negative Neurovascular: Negative Musculoskeletal: Negative Neurological: Negative Psychological: Negative All Other Systems Reviewed And Are Negative: Yes Physical Exam Triage Information Reviewed: Yes Appearance: Well-Appearing, No Pain Distress, Well-Nourished Vital Signs: Initial Vital Signs Temp 98.4 F 11/29/16 14:34 Pulse 91 11/29/16 14:34 Resp 18 11/29/16 14:34 BP 113/74 11/29/16 14:34 Pulse Ox 3 11/29/16 14:34 Vital Signs Reviewed: Yes Eyes: Positive: Conjunctiva Clear. Negative: Discharge ENT: Positive: Hearing grossly normal. Negative: Muffled/hoarse voice Dental Exam: Other - Mostly edentulous, the remaining upper teeth are severely damaged. Tenderness to percussion of the teeth. 2 cm area of swelling, erythema and tenderness at the L cheek above tooth 10 and 11. Neck exam: Normal Neck: Positive: Supple Respiratory Exam: Other - Comfortable, breathing on O2 Respiratory: Positive: Lungs clear, Normal breath sounds, No respiratory distress, No accessory muscle use Cardiovascular: Positive: RRR, No Murmur Musculoskeletal Exam: Normal Neurological Exam: Normal Neurological: Positive: Muscle Tone Normal Psychological Exam: Normal Psychological: Positive: Age Appropriate Behavior Skin Exam: Normal, Other - Warm, dry, normal color Dental Complaint Course/Dx - Differential Dx/Diagnosis Provider Diagnoses: toothache Discharge - Discharge Plan Condition: Stable Disposition: HOME Prescriptions: Clindamycin Cap(NF) [Clindamycin Cap 300 mg Cap(NF)] 300 mg PO Q6H #28 cap Patient Education Materials: Clindamycin (By mouth), Toothache (ED) Referrals: Josh Fairchild MD [Primary Care Provider] - If Needed Additional Instructions: Recommend Oil Pulling (coconut oil) and salt water rinsing, 5-20 minutes per day. ANYTIME YOU TAKE AN ANTIBIOTIC, ESPECIALLY CLINDA, IT IS IMPORTANT TO REPLENISH THE BODY'S SUPPLY OF "GOOD BACTERIA." YOU CAN GET GOOD BACTERIA FROM HIGH QUALITY CULTURED FOODS SUCH LOCAL YOGURT, SOUR KRAUT, RANDAL PERRI, NATURALLY FERMENTED PICKLES AND PROBIOTIC DRINKS. YOU CAN ALSO GET GOOD BACTERIA FROM A PROBIOTIC SUPPLEMENT. FOLLOW UP IT IS IMPORTANT THAT YOU FOLLOW UP WITH YOUR DENTIST SCHEDULED. HAVE A GREAT TIME AT YOUR SON'S [place]. CONGRATULATIONS! The documentation as recorded by the Marguerite mullen Edward accurately reflects the service I personally performed and the decisions made by me, Marielle Kenney DO.
== END 2016-11-29 17:10 | disposition home or self-care (01) ==
LOC: UCEAST 14:13
DX: K08.89 Other specified disorders of teeth and supporting structures (principal); Z88.0 Allergy status to penicillin; I25.10 Atherosclerotic heart disease of native coronary artery without angina pectoris; Z86.718 Personal history of other venous thrombosis and embolism; Z79.82 Long term (current) use of aspirin; Z95.5 Presence of coronary angioplasty implant and graft; J44.9 Chronic obstructive pulmonary disease, unspecified; Z87.891 Personal history of nicotine dependence
CPT/HCPCS: 99212; G0463

== ENCOUNTER 2017-12-30 07:28 | Day surgery (SDC) | payer OTHER ==
[~2017-12-30 07:28] MED LIST: Acetaminophen TAB* 325 MG PO PRN; Buffered Lidocaine 0.9% SYRIN* 5 ML/SYR SYRINGE INTRADERM ONE
[2017-12-30] MEDS ORDERED: Lidocaine 1%* 5 ML VIAL ONE (08:30)
[2017-12-30] MEDS ORDERED: Cyclopentolate 1% OPTH.SOL* 2 ML BTL ONE (08:30)
[2017-12-30] MEDS ORDERED: Ketorolac 0.5% OPHTH (NF) 0.5 % 5 ML BTL ONE (08:31)
[2017-12-30] MEDS ORDERED: Neomycin/Polymy/Dex OPHTH.OIN* 3.5 GM ONE (08:31)
[2017-12-30] MEDS ORDERED: Phenylephrine 2.5% OPTH.SOL* 2 ML BTL ONE (08:31)
[2017-12-30] MEDS ORDERED: Tropicamide 1% OPTH.SOL* BTL ONE (08:31)
[2017-12-30] MEDS ORDERED: Tetracaine 0.5% OPTH.SOL 4 ML* 1 DROP BTL ONE (08:31)
[2017-12-30] MEDS ORDERED: Midazolam* 1 MG/ML 2 ML VIAL (2 MG) ONE ×2 (09:09→09:48)
[2017-12-30] MEDS ORDERED: fentaNYL* 50 MCG/ML 2 ML VIAL (100 MCG VIAL) ONE (09:09)
[2017-12-30] MEDS ORDERED: Trypan Blue 0.06% SOL* 0.5 ML BTL ONE (09:14)
[2017-12-30] MEDS ORDERED: Phenylephr/Ketorolac 1%/0.3% OPH DROP BTL ONE (10:08)
[2017-12-30 10:18] VITALS: BP 124/84
--- NOTE | 2017-12-31 04:13 | OP ---
DATE OF OPERATION: 12/30/17 [facility] DATE OF : 58 SURGEON: Ashish Gracia MD. WINE SALES REPRESENTATIVE: None. ANESTHESIA: Topical with intravenous sedation. PRE-OP DIAGNOSIS: White cataract small pupil, left eye. POST-OP DIAGNOSIS: White cataract small pupil, left eye. OPERATIVE PROCEDURE: Phacoemulsification and cataract extraction with posterior chamber intraocular lens implant, left eye. COMPLICATIONS: None. BLOOD LOSS: None. DESCRIPTION OF PROCEDURE: The patient was brought to the operating room and given a small amount of intravenous sedation as well as a drop of tetracaine to the left eye. He was prepped and draped in the usual sterile fashion for ophthalmic surgery and attention was directed to the left eye where a speculum was placed. A paracentesis was created at the 5 o'clock position and 0.1 cc of 1 percent preservative-free lidocaine was injected into the anterior chamber. The pupil was noted to be approximately 4 mm and the surface of the lens appeared fairly white. Room air was injected to the anterior chamber followed by VisionBlue dye. DisCoVisc was then placed into the anterior chamber. A 2.75 mm keratome was used to create a triplanar clear corneal incision at the 3 o' clock position. A continuous curvilinear capsulorrhexis was created with cystotome and Utrata forceps. Omidria was placed into the irrigating solution. BSS on a cannula was used to hydrodissect the lens from the capsule. Phacoemulsification was performed in a [id number] technique to create 4 fragments which were removed. Residual cortical material was removed with irrigation and aspiration. DisCoVisc was used to inflate the capsular bag. An AU00T0 23 diopter lens was inserted into the capsular bag. Irrigation and aspiration were performed to remove viscoelastic from the eye. BSS on a cannula was used to hydrate the corneal stroma and seal the wound. At the end of the case, the pupil was round and measured approximately 4 mm. The lens appeared central and stable. The eye pressure appeared normal and the wound was water tight. Topical Maxitrol ointment was placed on the surface of the eye and the eye speculum was removed. The eye was closed, patched and shielded and the patient was sent to the recovery room in stable condition with post operative instructions and followup appointment given. [id number]/[facility] [place] #: [id number] JOSH
== END 2017-12-30 10:19 | disposition home or self-care (01) ==
LOC: OREAST 07:28
PROVIDERS: ATTEND Ophthalmology
DX: H25.042 Posterior subcapsular polar age-related cataract, left eye (principal); J44.9 Chronic obstructive pulmonary disease, unspecified; Z95.5 Presence of coronary angioplasty implant and graft; Z99.81 Dependence on supplemental oxygen
CPT/HCPCS: A9270-GY; C9447; J2250; J3010; V2632

== ENCOUNTER 2018-01-06 10:02 | Day surgery (SDC) | payer OTHER ==
[~2018-01-06 10:02] MED LIST changes: +Cyclopentolate 1% OPTH.SOL* 2 ML BTL ONE; +Ketorolac 0.5% OPHTH (NF) 0.5 % 5 ML BTL ONE; +Lidocaine 1%* 5 ML VIAL ONE; +Neomycin/Polymy/Dex OPHTH.OIN* 3.5 GM ONE; +Phenylephr/Ketorolac 1%/0.3% OPH DROP BTL ONE; +Phenylephrine 2.5% OPTH.SOL* 2 ML BTL ONE; +Tetracaine 0.5% OPTH.SOL 4 ML* 1 DROP BTL ONE; +Tropicamide 1% OPTH.SOL* BTL ONE; +Trypan Blue 0.06% SOL* 0.5 ML BTL ONE
[2018-01-06] MEDS ORDERED: Neomycin/Polymy/Dex OPHTH.OIN* 3.5 GM ONE (12:16)
[2018-01-06] MEDS ORDERED: Ketorolac 0.5% OPHTH (NF) 0.5 % 5 ML BTL ONE (12:16)
[2018-01-06] MEDS ORDERED: Phenylephrine 2.5% OPTH.SOL* 2 ML BTL ONE (12:16)
[2018-01-06] MEDS ORDERED: Trypan Blue 0.06% SOL* 0.5 ML BTL ONE ×2 (12:16→12:26)
[2018-01-06] MEDS ORDERED: Tetracaine 0.5% OPTH.SOL 4 ML* 1 DROP BTL ONE (12:16)
[2018-01-06] MEDS ORDERED: Cyclopentolate 1% OPTH.SOL* 2 ML BTL ONE (12:16)
[2018-01-06] MEDS ORDERED: Phenylephr/Ketorolac 1%/0.3% OPH DROP BTL ONE (12:16)
[2018-01-06] MEDS ORDERED: Lidocaine 1%* 5 ML VIAL ONE (12:16)
[2018-01-06] MEDS ORDERED: Tropicamide 1% OPTH.SOL* BTL ONE (12:16)
[2018-01-06] MEDS ORDERED: Midazolam* 1 MG/ML 5 ML VIAL (5 MG) ONE (12:50)
[2018-01-06] MEDS ORDERED: fentaNYL* 50 MCG/ML 2 ML VIAL (100 MCG VIAL) ONE (12:57)
[2018-01-06 13:40] VITALS: BP 122/83
--- NOTE | 2018-01-07 09:44 | OP ---
DATE OF OPERATION: 01/06/18 - [facility] DATE OF : 58 SURGEON: Ashish Gracia MD PATTERN MAKER PROGRAMER: None. ANESTHESIA: Topical with intravenous sedation. PRE-OP DIAGNOSIS: Cataract, right eye with small pupil. POST-OP DIAGNOSIS: Cataract, right eye with small pupil. OPERATIVE PROCEDURE: Phacoemulsification and cataract extraction with posterior chamber intraocular lens implant, right eye. COMPLICATIONS: None. BLOOD LOSS: None. DESCRIPTION OF PROCEDURE: The patient was brought to the operating room and received a small amount of intravenous sedation as well as a drop of tetracaine to the right eye. The patient was prepped and draped in the usual sterile fashion for ophthalmic surgery and the speculum was placed in his right eye. It was noted that his pupil dilated to approximately 4 mm only. A paracentesis was created at the 11 o'clock position and 0.1 cc of 1% preservative-free lidocaine was injected into the anterior chamber followed by DisCoVisc. The eye was digitally stabilized while a 2.75 mm keratome was used to create a triplanar clear corneal incision. A Malyugin ring was introduced into the anterior chamber and used to engage the pupillary margin. A continuous curvilinear capsulorrhexis was created with the cystotome and Utrata forceps. BSS was used to hydrodissect the lens from the capsule. Omidria was added to the irrigating solution. Phacoemulsification was performed in a divide-and- conquer technique to create 4 fragments which were removed. Residual cortical material was removed with irrigation and aspiration. DisCoVisc was used to inflate the capsular bag. An AU00T0 24.0 diopter lens was inserted into the capsular bag. DisCoVisc was removed from behind the lens. Supplemental DisCoVisc was placed in the anterior chamber and the Malyugin ring was removed. All DisCoVisc was then removed from the eye using irrigation and aspiration. BSS on a cannula was used to hydrate the corneal stroma and seal the wound. At the end of the case, the pupil was round, the lens was central and stable. The eye pressure appeared normal and the wound was water tight. The speculum was removed from the eye and topical Maxitrol ointment was placed on its surface. The eye was closed, patched and shielded and the patient was sent to the recovery room in stable condition with post operative instructions and followup appointment given. [id number]/[facility] #: [id number] JOSH
== END 2018-01-06 13:47 | disposition home or self-care (01) ==
LOC: OREAST 10:02
PROVIDERS: ATTEND Ophthalmology
DX: H25.11 Age-related nuclear cataract, right eye (principal); H21.561 Pupillary abnormality, right eye; J44.9 Chronic obstructive pulmonary disease, unspecified; Z99.81 Dependence on supplemental oxygen
CPT/HCPCS: A9270-GY; C9447; J2250; J3010; V2632

== ENCOUNTER 2018-04-24 07:47 | Day surgery (SDC) | payer OTHER ==
[~2018-04-24 07:47] MED LIST changes: -Acetaminophen TAB* 325 MG PO PRN; -Buffered Lidocaine 0.9% SYRIN* 5 ML/SYR SYRINGE INTRADERM ONE; +Buffered Lidocaine 1% SYRIN* 1 ML/SYRINGE INTRADERM ONE; -Cyclopentolate 1% OPTH.SOL* 2 ML BTL ONE; -Ketorolac 0.5% OPHTH (NF) 0.5 % 5 ML BTL ONE; +Lactated Ringers 1000 ML Bag* 1,000 ML IV SCH; -Lidocaine 1%* 5 ML VIAL ONE; -Neomycin/Polymy/Dex OPHTH.OIN* 3.5 GM ONE; -Phenylephr/Ketorolac 1%/0.3% OPH DROP BTL ONE; -Phenylephrine 2.5% OPTH.SOL* 2 ML BTL ONE; -Tetracaine 0.5% OPTH.SOL 4 ML* 1 DROP BTL ONE; -Tropicamide 1% OPTH.SOL* BTL ONE; -Trypan Blue 0.06% SOL* 0.5 ML BTL ONE
[2018-04-24] MEDS ORDERED: Buffered Lidocaine 1% SYRIN* 1 ML/SYRINGE INTRADERM ONE (08:16)
[2018-04-24] MEDS ORDERED: Midazolam* 1 MG/ML 2 ML VIAL (2 MG) ONE (09:02)
[2018-04-24] MEDS ORDERED: fentaNYL* 50 MCG/ML 2 ML VIAL (100 MCG VIAL) ONE (09:02)
[2018-04-24] MEDS ORDERED: Propofol* 10 MG/ML 20 ML BTL ONE (09:42)
[2018-04-24] MEDS ORDERED: Phenylephrine INJ* 10 MG/ML 1 ML VIAL (10 MG) ONE (09:49)
[2018-04-24] MEDS ORDERED: Lidocaine 2% PF * 5 ML VIAL ONE (09:51)
[2018-04-24] MEDS ORDERED: Naloxone* 0.4 MG/ML 1 ML VIAL IV PRN (09:54)
[2018-04-24] MEDS ORDERED: Ondansetron ODT TAB* 4 MG PO PRN (09:54)
[2018-04-24] MEDS ORDERED: Acetaminophen TAB* 325 MG PO PRN (09:54)
[2018-04-24] MEDS ORDERED: Levalbuterol 0.63MG/3ML NEB* UNIT OF USE INH PRN (09:54)
[2018-04-24] MEDS ORDERED: DiMENhydriNATE IV* 50 MG/ML VIAL IV PUSH PRN (09:54)
[2018-04-24 10:52] VITALS: BP 129/90
--- NOTE | 2018-04-24 15:22 | PRO ---
CC: Dr. Josh Fairchild * DATE OF PROCEDURE: 04/24/18 - [facility] PRIMARY CARE PHYSICIAN: Dr. Josh Fairchild. INDICATION FOR PROCEDURE: Average risk screening colonoscopy. PROCEDURE PERFORMED: Complete colonoscopy to the terminal ileum with cold snare polypectomy x3. MEDICATIONS GIVEN: Please see anesthesia record. DESCRIPTION OF PROCEDURE: After the colonoscopy procedure, including the risks , benefits, and alternatives, with the risks not limited to perforation, surgery , missed lesions, and/or were explained to the patient, written and informed consent was obtained. IV medication was given by the anesthesia service. A rectal exam was then performed. The rectal exam was unremarkable. The adult Olympus colonoscope was then inserted into the patient's rectum and advanced very carefully through the entirety of the colon and into the cecal base. The cecal base was carefully inspected and normal in appearance. The terminal ileal valve was identified and intubated times 4 to 5 cm and normal in appearance. The preparation was relatively poor requiring frequent washings. Three polyps were identified, two in the transverse colon, they were 0.8 to 1 cm in diameter. They were removed with cold snare polypectomy. An additional 0.8 cm polyp was removed in the sigmoid colon. This was again with cold snare polypectomy. The scope was then returned to the rectum. Direct views were normal. On retroflexion, grade 1 internal hemorrhoids were appreciated. He did have mild arana diverticulosis coli. The scope was then removed from the patient. He tolerated the procedure well. He returned to the recovery room in stable condition. IMPRESSION: 1. Complete colonoscopy to the terminal ileum. 2. Poor prep. 3. Cold snare polypectomy x3 as above. 4. Mild arana diverticulosis coli. 5. Grade 1 internal hemorrhoids. RECOMMENDATIONS: The prep was suboptimal today. I was able to get decent views in some section of the colon, but was obscured in others. Would recommend extended prep and repeat colonoscopy in 6 months to one year. We will follow up on the results of his pathology. [id number]/[facility] #: [id number] JOSH
== END 2018-04-24 11:38 | disposition home or self-care (01) ==
LOC: OR 07:47
PROVIDERS: ATTEND Internal Medicine Gastroenterology
DX: Z12.11 Encounter for screening for malignant neoplasm of colon (principal); K63.5 Polyp of colon; K57.30 Diverticulosis of large intestine without perforation or abscess without bleeding; K64.8 Other hemorrhoids; I25.10 Atherosclerotic heart disease of native coronary artery without angina pectoris; Z95.5 Presence of coronary angioplasty implant and graft; J44.9 Chronic obstructive pulmonary disease, unspecified; G47.33 Obstructive sleep apnea (adult) (pediatric); Z86.711 Personal history of pulmonary embolism; Z79.82 Long term (current) use of aspirin; Z88.0 Allergy status to penicillin; Z87.891 Personal history of nicotine dependence
CPT/HCPCS: 88305; J2250; J2704; J3010

== ENCOUNTER → 2018-12-25 10:07 | Day surgery (SDC) | payer MEDICAID, MEDICARE, OTHER ==
[~2018-12-25 10:07] MED LIST changes: +Albuterol (2.5 MG) 0.5 % CONC 2.5 MG/0.5 ML NEB.SOLN (ICU and ED only) INH ONE; +Albuterol 2.5 MG/3 ML NEB.SOL* (0.083%) INH ONE; +Dexamethasone IV* 4 MG/ML 1 ML (4 MG) ONE; +Famotidine IV* 10 MG/ML 2 ML (20 mg) IV ONE; +Famotidine IV* 10 MG/ML 2 ML (20 mg) ONE; +Midazolam* 1 MG/ML 5 ML VIAL (5 MG) ONE; +Ondansetron INJ* 2 MG/ML VIAL ONE
[2018-12-25 14:48] VITALS: BP 133/86
--- NOTE | 2018-12-26 04:45 | PRO ---
CC: Dr. Josh Fairchild.* DATE OF PROCEDURE: 12/25/18 - [facility] PRIMARY CARE PHYSICIAN: Dr. Josh Fairchild. INDICATION FOR PROCEDURE: Pretransplant colonoscopy screening. PROCEDURE PERFORMED: Complete colonoscopy to the cecum. MEDICATIONS GIVEN: Please see anesthesia record. DESCRIPTION OF PROCEDURE: After the colonoscopy procedure including the risks, benefits, and alternatives with the risks not limited to perforation, surgery, missed lesions, and/or were explained to the patient. Written and informed consent was obtained. IV medication was given and a rectal exam was performed. The rectal exam was unremarkable. The adult Olympus colonoscope was then inserted into the patient's rectum and advanced very carefully through the entirety of the colon and into the cecal base. The cecal base was carefully inspected and normal in appearance. The terminal ileal valve was identified and normal in appearance. Over the next 15 minutes, the scope was carefully withdrawn inspecting the mucosa. The preparation was fair. In the ascending colon a polyp was removed with cold snare polypectomy in entirety. In the transverse colon 2 polyps were removed with biopsy polypectomy in entirety. In the descending colon additional polyp removed with biopsy polypectomy in entirety and finally 2 additional polyps were removed with biopsy polypectomy in entirety. The scope was then returned to the rectum. Direct views were normal. On retroflexion, grade 1 internal hemorrhoids were appreciated. There is mild left-sided diverticulosis coli. The scope was then removed from the patient, he tolerated the procedure well. He returned to the recovery room in stable condition. IMPRESSION: 1. Complete colonoscopy of the cecum with cold snare and biopsy polypectomy x6 polyps as above. 2. Fair prep. 3. Grade 1 internal hemorrhoids. 4. Left-sided diverticulosis coli. RECOMMENDATIONS: Okay to proceed with transplant from a colonoscopy point of view. We will follow up on the results of these polyps but do not anticipate any limiting effects. We would recommend a repeat colonoscopy in 3 years time if he is healthy. We would recommend seeing in the office prior to determine the risks and benefits of future screening at that time. [id number]/[facility] #: [id number] MTDD
== END | disposition home or self-care (01) ==
LOC: OR 10:07
PROVIDERS: ATTEND Internal Medicine Gastroenterology
DX: Z09 Encounter for follow-up examination after completed treatment for conditions other than malignant neoplasm (principal); Z87.19 Personal history of other diseases of the digestive system; Z12.11 Encounter for screening for malignant neoplasm of colon; K63.5 Polyp of colon; K62.1 Rectal polyp; D12.2 Benign neoplasm of ascending colon; J44.9 Chronic obstructive pulmonary disease, unspecified; Z99.81 Dependence on supplemental oxygen; I25.10 Atherosclerotic heart disease of native coronary artery without angina pectoris; Z95.5 Presence of coronary angioplasty implant and graft; Z79.82 Long term (current) use of aspirin; I48.91 Unspecified atrial fibrillation
CPT/HCPCS: 88305; J1100; J2250; J2405

== ENCOUNTER 2023-04-02 17:02 | Inpatient (IN) ==
[2023-04-02] MEDS ORDERED: Naloxone 4 mg VIAL 0.4 MG/ML 10 ml VIAL (4 mg) ONE (17:11)
[2023-04-02] MEDS ORDERED: Succinylcholine 200 mg VIAL 20 mg/ml 10 ml VIAL (200 mg) ONE (17:15)
[2023-04-02] MEDS ORDERED: Dextrose 50% Syringe 50 ml 25 GM/50 ML SYRINGE ONE (17:15)
[2023-04-02] MEDS ORDERED: Etomidate 40 mg/20 ml (2 MG/ML) 20 ml VIAL (40 mg) ONE (17:16)
[2023-04-02] MEDS ORDERED: Propofol 10 MG/ML 20 ML BTL ONE (17:21)
[2023-04-02] MEDS ORDERED: Propofol 10 MG/ML 20 ML BTL IV PUSH ONE (17:24)
[2023-04-02] MEDS ORDERED: Succinylcholine 200 mg VIAL 20 mg/ml 10 ml VIAL (200 mg) IV ONE (17:28)
[2023-04-02] MEDS ORDERED: Etomidate 20 mg/10 ml 2 MG/ML 10 ml VIAL IV ONE (17:29)
[2023-04-02] MEDS ORDERED: Dextrose 50% Syringe 50 ml 25 GM/50 ML SYRINGE IV PUSH ONE (17:30)
[2023-04-02] MEDS ORDERED: Propofol 10 mg/ml 100 ML BTL 1,000 MG/100 ML BTL ONE (17:31)
[2023-04-02] MEDS ORDERED: methylPREDNISolone SOD SUCC 125 mg 2 ML VIAL IV ONE (17:32)
[2023-04-02] MEDS ORDERED: NS 0.9% 1000 ml BAG 1,000 ML IV ONE ×2 (17:33→17:53)
[2023-04-02 17:39] LABS: PO2 Arterial 282 mmHg (80-100)
[2023-04-02 17:42] LABS: PCO2 Arterial > 100 mmHg (35-45)
[2023-04-02] MEDS ORDERED: Cefepime 1 GM in Dextrose 1 GM/50 ML BAG IV ONE (17:50)
[2023-04-02] MEDS ORDERED: Azithromycin 500 mg/250 ml NS 500 MG/250 ML BAG IVPB ONE (17:51)
[2023-04-02] MEDS ORDERED: Naloxone 0.4 mg VIAL 0.4 mg/ml 1 ml VIAL IV PUSH ONE (17:51)
[2023-04-02] MEDS ORDERED: Propofol 10 mg/ml 100 ML BTL 1,000 MG/100 ML BTL IV SCH ×2 (18:00)
[2023-04-02 18:02] LABS: Hematocrit 34.5 % (38-53); Hemoglobin 10.8 g/dL (13.2-16.3); Mean Corpuscular Hemoglobin 28.7 pg (27-33); Mean Corpuscular Hgb Conc 31.5 g/dL (31-36); Mean Corpuscular Volume 91.2 fL (80-97); Mean Platelet Volume 8.4 fL (7.5-11.2); Platelet Count 241 10^3/uL (150-450); Red Blood Count 3.78 10^6/uL (4.06-5.63); Red Cell Distribution Width 13.5 % (12-17); White Blood Count 7.4 10^3/uL (3.6-10.2)
[2023-04-02] MEDS ORDERED: Midazolam 2 mg/2 ml VIAL 1 mg/ml 2 ml VIAL (2 mg) ONE (18:10)
[2023-04-02 18:12] LABS: INR 1.09 (0.83-1.13)
[2023-04-02] MEDS ORDERED: Midazolam 2 mg/2 ml VIAL 1 mg/ml 2 ml VIAL (2 mg) IV SLOW PU ONE (18:17)
[2023-04-02] MEDS: Norepinephrine 4 MG/250mL D5W 4,000 MCG/250 ML BAG IV SCH ×2 (18:18→20:34)
[2023-04-02] MEDS ORDERED: Norepinephrine 4 MG/250mL D5W 4,000 MCG/250 ML BAG IV ONE (18:18)
[2023-04-02 18:27] LABS: High Sens Troponin Baseline 19 pg/mL (<20)
[2023-04-02 18:28] LABS: ABS Lymphocytes 0.2 10^3/uL (1.0-4.8); ABS Monocytes 0.9 10^3/uL (0.0-1.1); ABS Neutrophils 6.3 10^3/uL (1.5-7.6); ABS Nucleated RBC 0.01 10^3/ul; Eosinophil % 0.3 %; Lymphocyte % 2.4 %; Nucleated Red Blood Cells % 0.1 %/100WBC (0.0-0.8)
[2023-04-02 18:32] LABS: Alcohol, S < 13 mg/dL (<13)
[2023-04-02 18:46] LABS: ALT 10 U/L (7-52); AST 12 U/L (13-39); Albumin 3.6 g/dL (3.2-5.2); Albumin/Globulin Ratio 1.2 (1-3); Alkaline Phosphatase 130 U/L (35-149); Blood Urea Nitrogen 42 mg/dL (6-24); CO2 Carbon Dioxide > 45 mmol/L (22-32); Calcium 9.4 mg/dL (8.6-10.3); Chloride 91 mmol/L (101-111); Creatine Kinase 31 U/L (10-223); Creatinine, Serum 0.74 mg/dL (0.67-1.17); Globulin 3.1 g/dL (2-4); Glucose 120 mg/dL (70-100); Magnesium 2.5 mg/dL (1.9-2.7); Sodium 141 mmol/L (135-145); Total Bilirubin 0.3 mg/dL (0.2-1.0); Total Protein 6.7 g/dL (6.4-8.9); eGFR CKD-EPI 101.8 (>60)
[2023-04-02] MEDS ORDERED: D5W 1/2 NS 1000 ml BAG 1,000 ML IV SCH (19:00)
[2023-04-02] MEDS ORDERED: VASOPRESSIN IVPREMIX BTL 40 UNIT/100 ML BTL IV SCH (19:30)
[2023-04-02] MEDS: Midazolam PREMIXBAG 1 MG/ML NS 100 ML IV SCH (19:50)
[2023-04-02] MEDS: Chlorhexidine MOUTHWASH 0.12% 15 ML UDC SWISH SPIT SCH ×2 (19:50→21:31)
[2023-04-02] MEDS ORDERED: Dextrose 50% Syringe 50 ml 25 GM/50 ML SYRINGE IV PUSH PRN (19:57)
[2023-04-02] MEDS: Albuterol/Ipratropium NEB.SOL (2.5/0.5 MG) 3 ML NEB.SOLN INH SCH (20:43)
[2023-04-02] MEDS ORDERED: fentaNYL INFUSION 50 mcg/mL VL 2,500 MCG/50 ML VIAL IV SCH (21:00)
[2023-04-02] MEDS: Enoxaparin 40 MG/0.4 ML SYR SUBCUT SCH (21:30)
[2023-04-02] MEDS: Pantoprazole VIAL 40 MG VIAL IV SCH (21:30)
[2023-04-03] MEDS ORDERED: D5W 1/2 NS 1000 ml BAG 1,000 ML IV SCH (00:20)
[2023-04-03] MEDS: Norepinephrine 4 MG/250mL D5W 4,000 MCG/250 ML BAG IV SCH ×4 (00:36→10:03)
[2023-04-03 00:42] LABS: Resp Rate 20
[2023-04-03 00:44] LABS: PCO2 Arterial 55 mmHg (35-45); PO2 Arterial 124 mmHg (80-100)
[2023-04-03] MEDS: Albuterol/Ipratropium NEB.SOL (2.5/0.5 MG) 3 ML NEB.SOLN INH SCH ×4 (00:45→20:14)
[2023-04-03 01:35] LABS: Urine Appearance Cloudy; Urine Bilirubin Negative (Negative); Urine Blood 2+ (Negative); Urine Color Amber; Urine Glucose 2+(150 mg/dL) (Negative); Urine Ketones Trace (Negative); Urine Nitrite Negative (Negative); Urine Protein 2+(100 mg/dL) (Negative); Urine Specific Gravity 1.018 (1.002-1.030); Urine Urobilinogen Negative (Negative)
[2023-04-03 01:54] LABS: Urine Benzodiazepine Screen Presumptive Positive (None Detect); Urine Cannabinoids Screen None Detected (None Detect); Urine Opiates Screen None Detected (None Detect)
[2023-04-03] MEDS: Chlorhexidine MOUTHWASH 0.12% 15 ML UDC SWISH SPIT SCH ×6 (02:02→21:12)
[2023-04-03 02:04] LABS: High Sensitivity Troponin 1 Hr 21 pg/mL (<20)
[2023-04-03 02:07] LABS: Urine Amorphous Crystals Present /HPF (Absent); Urine Bacteria Absent (Absent); Urine Granular Casts Present (Absent); Urine Red Blood Cell 3+(>10/hpf) (Absent); Urine Squamous Epithelial Cell Present (Absent); Urine White Blood Cell 3+(>20/hpf) (Absent)
[2023-04-03 02:09] LABS: Urine Buprenorphine Screen None Detected (None Detect); Urine Fentanyl Screen None Detected (None Detect); Urine Hydrocodone Screen None Detected (None Detect)
[2023-04-03] MEDS ORDERED: Acetaminophen IV 1 GM/100ML 1,000 MG/100 ML BAG IV PRN (03:09)
[2023-04-03 04:44] LABS: Hematocrit 37.1 % (38-53); Hemoglobin 11.8 g/dL (13.2-16.3); Mean Corpuscular Hemoglobin 28.6 pg (27-33); Mean Corpuscular Hgb Conc 31.7 g/dL (31-36); Mean Corpuscular Volume 90.2 fL (80-97); Mean Platelet Volume 9.2 fL (7.5-11.2); Platelet Count 373 10^3/uL (150-450); Red Blood Count 4.12 10^6/uL (4.06-5.63); Red Cell Distribution Width 13.2 % (12-17); White Blood Count 10.4 10^3/uL (3.6-10.2)
[2023-04-03 05:07] LABS: Anion Gap 7 mmol/L (2-16); Blood Urea Nitrogen 50 mg/dL (6-24); CO2 Carbon Dioxide 33 mmol/L (22-32); Calcium 8.5 mg/dL (8.6-10.3); Chloride 90 mmol/L (101-111); Creatinine, Serum 1.33 mg/dL (0.67-1.17); Glucose 432 mg/dL (70-100); Potassium 4.1 mmol/L (3.5-5.0); Sodium 130 mmol/L (135-145); eGFR CKD-EPI 60.1 (>60)
[2023-04-03 05:09] LABS: Albumin/Globulin Ratio 1.1 (1-3); Calcium 8.6 mg/dL (8.6-10.3); Creatinine, Serum 1.48 mg/dL (0.67-1.17); Globulin 2.7 g/dL (2-4); Potassium 4.1 mmol/L (3.5-5.0); Total Bilirubin 0.5 mg/dL (0.2-1.0); Total Protein 5.7 g/dL (6.4-8.9); eGFR CKD-EPI 52.8 (>60)
[2023-04-03 05:35] LABS: Phosphorus < 1.0 mg/dL (2.5-5.0)
[2023-04-03] MEDS: Sodium Phosphate IV 30 MMOL in NS 0.9% 250 ml 250 ML IV SCH ×2 (06:43→13:16)
[2023-04-03 07:19] LABS: ABS Lymphocytes 0.2 10^3/uL (1.0-4.8); ABS Monocytes 1.3 10^3/uL (0.0-1.1); ABS Neutrophils 8.9 10^3/uL (1.5-7.6); ABS Nucleated RBC 0.05 10^3/ul; Eosinophil % 0.1 %; Nucleated Red Blood Cells % 0.4 %/100WBC (0.0-0.8); RBC Morphology Normal (Normal)
[2023-04-03] MEDS: Pantoprazole VIAL 40 MG VIAL IV SCH (08:34)
[2023-04-03] MEDS ORDERED: Cefepime 1 GM in Dextrose 1 GM/50 ML BAG IV SCH (09:00)
[2023-04-03 09:16] LABS: Glucose Confirmatory 487 mg/dL (70-100)
[2023-04-03] MEDS ORDERED: Dextrose 50% Syringe 50 ml 25 GM/50 ML SYRINGE IV PUSH PRN (09:26)
[2023-04-03] MEDS ORDERED: Potassium & Sodium Phos 250 mg = 1 PACKET G TUBE ONE (09:31)
[2023-04-03] MEDS ORDERED: Insulin Infusion 100unit/100mL 100 UNIT/100 ML BAG IV SCH (10:00)
[2023-04-03] MEDS: Midazolam PREMIXBAG 1 MG/ML NS 100 ML IV SCH (11:26)
[2023-04-03] MEDS ORDERED: Norepinephrine 4 MG/250mL NS 4,000 MCG/250 ML BAG IV SCH (14:00)
[2023-04-03 17:12] LABS: Calcium 7.9 mg/dL (8.6-10.3); Creatinine, Serum 1.82 mg/dL (0.67-1.17); Potassium 3.1 mmol/L (3.5-5.0); eGFR CKD-EPI 41.2 (>60)
[2023-04-03] MEDS ORDERED: Lactated Ringers 1000 ml BAG 1,000 ML IV SCH (18:00)
[2023-04-03] MEDS ORDERED: Potassium Chloride LIQUID 20 MEQ/15 ML LIQUID NG TUBE ONE (19:20)
[2023-04-03 20:00] LABS: Calcium 8.5 mg/dL (8.6-10.3); Creatinine, Serum 2.06 mg/dL (0.67-1.17); Phosphorus 5.4 mg/dL (2.5-5.0); Potassium 3.6 mmol/L (3.5-5.0); eGFR CKD-EPI 35.5 (>60)
[2023-04-03] MEDS: Enoxaparin 40 MG/0.4 ML SYR SUBCUT SCH (21:12)
[2023-04-03] MEDS: Cefepime 1 GM in Dextrose 1 G/50 ML BAG IV SCH (21:12)
[2023-04-03] MEDS: Azithromycin 500 mg/250 ml NS 500 MG/250 ML BAG IVPB SCH (22:46)
[2023-04-04] MEDS: Chlorhexidine MOUTHWASH 0.12% 15 ML UDC SWISH SPIT SCH ×6 (01:39→21:09)
[2023-04-04] MEDS: Albuterol/Ipratropium NEB.SOL (2.5/0.5 MG) 3 ML NEB.SOLN INH SCH ×5 (01:41→23:33)
[2023-04-04 05:21] LABS: ABS Basophils 0.1 10^3/uL (0.0-0.1); ABS Lymphocytes 0.4 10^3/uL (1.0-4.8); ABS Monocytes 1.4 10^3/uL (0.0-1.1); ABS Nucleated RBC 0.02 10^3/ul; Hematocrit 34.3 % (38-53); Hemoglobin 11.2 g/dL (13.2-16.3); Lymphocyte % 1.9 %; Mean Corpuscular Hemoglobin 28.4 pg (27-33); Mean Corpuscular Hgb Conc 32.7 g/dL (31-36); Mean Corpuscular Volume 86.8 fL (80-97); Mean Platelet Volume 8.7 fL (7.5-11.2); Nucleated Red Blood Cells % 0.1 %/100WBC (0.0-0.8); Platelet Count 304 10^3/uL (150-450); Red Blood Count 3.95 10^6/uL (4.06-5.63); Red Cell Distribution Width 13.7 % (12-17); White Blood Count 18.8 10^3/uL (3.6-10.2)
[2023-04-04 06:40] LABS: Calcium 8.1 mg/dL (8.6-10.3); Creatinine, Serum 2.06 mg/dL (0.67-1.17); Phosphorus 4.5 mg/dL (2.5-5.0); Potassium 4.2 mmol/L (3.5-5.0); eGFR CKD-EPI 35.3 (>60)
[2023-04-04 06:45] LABS: Magnesium 1.9 mg/dL (1.9-2.7); Phosphorus 4.4 mg/dL (2.5-5.0)
[2023-04-04] MEDS: Pantoprazole VIAL 40 MG VIAL IV SCH (08:18)
[2023-04-04] MEDS: Cefepime 1 GM in Dextrose 1 G/50 ML BAG IV SCH ×2 (08:19→19:58)
[2023-04-04] MEDS ORDERED: Lactated Ringers 1000 ml BAG 1,000 ML IV SCH (11:00)
[2023-04-04] MEDS: methylPREDNISolone SOD SUCC 40 mg/ml 1 ml VIAL IV SCH ×2 (11:14→17:52)
[2023-04-04] MEDS: Midazolam PREMIXBAG 1 MG/ML NS 100 ML IV SCH (12:09)
[2023-04-04 14:49] LABS: Calcium 8.2 mg/dL (8.6-10.3); Creatinine, Serum 1.77 mg/dL (0.67-1.17); Potassium 4.3 mmol/L (3.5-5.0); eGFR CKD-EPI 42.4 (>60)
[2023-04-04] MEDS: Enoxaparin 40 MG/0.4 ML SYR SUBCUT SCH (20:01)
[2023-04-04] MEDS: Azithromycin 500 mg/250 ml NS 500 MG/250 ML BAG IVPB SCH (20:03)
[2023-04-05] MEDS: Chlorhexidine MOUTHWASH 0.12% 15 ML UDC SWISH SPIT SCH ×6 (01:18→21:51)
[2023-04-05] MEDS: methylPREDNISolone SOD SUCC 40 mg/ml 1 ml VIAL IV SCH ×3 (02:05→19:39)
[2023-04-05 04:30] LABS: Calcium 8.1 mg/dL (8.6-10.3); Creatinine, Serum 1.57 mg/dL (0.67-1.17); Potassium 4.5 mmol/L (3.5-5.0); eGFR CKD-EPI 48.9 (>60)
[2023-04-05 04:50] LABS: ABS Basophils 0.2 10^3/uL (0.0-0.1); ABS Lymphocytes 0.2 10^3/uL (1.0-4.8); ABS Monocytes 0.5 10^3/uL (0.0-1.1); ABS Neutrophils 18.7 10^3/uL (1.5-7.6); ABS Nucleated RBC 0.02 10^3/ul; Hematocrit 31.8 % (38-53); Hemoglobin 10.5 g/dL (13.2-16.3); Lymphocyte % 1.2 %; Mean Corpuscular Hemoglobin 28.4 pg (27-33); Mean Corpuscular Hgb Conc 32.9 g/dL (31-36); Mean Corpuscular Volume 86.3 fL (80-97); Mean Platelet Volume 8.5 fL (7.5-11.2); Nucleated Red Blood Cells % 0.1 %/100WBC (0.0-0.8); Platelet Count 321 10^3/uL (150-450); Red Blood Count 3.69 10^6/uL (4.06-5.63); Red Cell Distribution Width 13.9 % (12-17); White Blood Count 19.6 10^3/uL (3.6-10.2)
[2023-04-05] MEDS: Albuterol/Ipratropium NEB.SOL (2.5/0.5 MG) 3 ML NEB.SOLN INH SCH ×3 (07:40→19:32)
[2023-04-05] MEDS: Cefepime 1 GM in Dextrose 1 G/50 ML BAG IV SCH ×2 (07:47→19:43)
[2023-04-05] MEDS: Pantoprazole VIAL 40 MG VIAL IV SCH (09:29)
[2023-04-05 09:58] LABS: Resp Rate 12
[2023-04-05 10:08] LABS: PCO2 Arterial 60 mmHg (35-45); PO2 Arterial 74 mmHg (80-100)
[2023-04-05 14:52] LABS: T.Pallidum TP-PA Negative (Negative)
[2023-04-05] MEDS ORDERED: Propofol 10 mg/ml 100 ML BTL 1,000 MG/100 ML BTL IV SCH (17:00)
[2023-04-05] MEDS: Enoxaparin 40 MG/0.4 ML SYR SUBCUT SCH (19:38)
[2023-04-06] MEDS: Albuterol/Ipratropium NEB.SOL (2.5/0.5 MG) 3 ML NEB.SOLN INH SCH ×3 (01:36→13:26)
[2023-04-06] MEDS: Chlorhexidine MOUTHWASH 0.12% 15 ML UDC SWISH SPIT SCH ×4 (02:03→15:10)
[2023-04-06] MEDS: methylPREDNISolone SOD SUCC 40 mg/ml 1 ml VIAL IV SCH ×2 (02:08→10:57)
[2023-04-06 03:52] LABS: Calcium 8.5 mg/dL (8.6-10.3); Creatinine, Serum 1.14 mg/dL (0.67-1.17); Phosphorus 1.7 mg/dL (2.5-5.0); Potassium 5.1 mmol/L (3.5-5.0); eGFR CKD-EPI 71.8 (>60)
[2023-04-06 04:39] LABS: Hematocrit 31.1 % (38-53); Hemoglobin 10.1 g/dL (13.2-16.3); Mean Corpuscular Hemoglobin 28.3 pg (27-33); Mean Corpuscular Hgb Conc 32.6 g/dL (31-36); Mean Corpuscular Volume 86.9 fL (80-97); Mean Platelet Volume 8.5 fL (7.5-11.2); Platelet Count 341 10^3/uL (150-450); Red Blood Count 3.58 10^6/uL (4.06-5.63); Red Cell Distribution Width 14.1 % (12-17); White Blood Count 24.8 10^3/uL (3.6-10.2)
[2023-04-06 04:55] LABS: ABS Lymphocytes 0.3 10^3/uL (1.0-4.8); ABS Monocytes 0.8 10^3/uL (0.0-1.1); ABS Neutrophils 23.6 10^3/uL (1.5-7.6); ABS Nucleated RBC 0.07 10^3/ul; Lymphocyte % 1.2 %; Nucleated Red Blood Cells % 0.3 %/100WBC (0.0-0.8)
[2023-04-06 07:08] LABS: Magnesium 2.3 mg/dL (1.9-2.7)
[2023-04-06] MEDS ORDERED: SODIUM ZIRCONIUM CYCLOSILICATE 10 GM PACKET PO ONE (07:32)
[2023-04-06] MEDS: Cefepime 1 GM in Dextrose 1 G/50 ML BAG IV SCH (08:00)
[2023-04-06] MEDS: Pantoprazole VIAL 40 MG VIAL IV SCH (08:00)
[2023-04-06] MEDS ORDERED: Sulfur Hexaflouride MICROSPHR 25 MG VIAL ONE (10:55)
[2023-04-06] MEDS ORDERED: Sodium Phosphate IV 30 MMOL in NS 0.9% 250 ml 250 ML IV ONE (12:00)
[2023-04-06] MEDS ORDERED: Midazolam 2 mg/2 ml VIAL 1 mg/ml 2 ml VIAL (2 mg) IV SLOW PU PRN (13:22)
[2023-04-06] MEDS ORDERED: fentaNYL 100 mcg/2 ml 50 MCG/ML VIAL IV SLOW PU PRN (13:22)
[2023-04-06] MEDS ORDERED: fentaNYL 100 mcg/2 ml 50 MCG/ML VIAL ONE (13:24)
[2023-04-06] MEDS ORDERED: Midazolam 5 mg/5 ml VIAL 1 mg/ml 5 ml VIAL (5 mg) ONE (13:24)
[2023-04-06 15:15] VITALS: BP 125/72
[2023-04-06] MEDS ORDERED: Albuterol/Ipratropium NEB.SOL (2.5/0.5 MG) 3 ML NEB.SOLN INH PRN (16:00)
[2023-04-06] MEDS ORDERED: Ondansetron 4 mg VIAL 2 MG/ML 2 ml VIAL IV PRN (16:02)
[2023-04-06] MEDS ORDERED: Atropine 1% (ORAL/SL) 15 ML BTL SL PRN (16:02)
[2023-04-06] MEDS ORDERED: LORazepam 2 mg VIAL 1 ml IV PUSH PRN (16:02)
[2023-04-06] MEDS: Morphine 2 MG/ML SYRINGE IV PRN ×3 (16:15→18:00)
[2023-04-06] MEDS: LORazepam 2 mg VIAL 1 ml IV PUSH PRN ×3 (18:30→22:46)
== END 2023-04-06 22:54 | disposition expired | DRG 208 ==
LOC: ED 17:02 → EDHOLD 18:06 → ICU 19:27
PROVIDERS: ADMIT Internal Medicine Pulmonary Disease; ATTEND Hospitalist